=== PATIENT | male | born 1970 | race Caucasian/White ===

== ENCOUNTER 2024-08-17 13:41 | Emergency (ER) | payer SELFPAY ==
[2024-08-17 13:46] VITALS: PULSE 150
[2024-08-17 13:55] VITALS: BP 137/82; PULSE 135; RESP 15; TEMP 36.9; O2SAT 97; BMI 25.4
--- NOTE | 2024-08-17 14:12 | EDNOTE_ITS ---
ED Alcohol RME/HPI General Chief Complaint: Alcohol Stated Complaint: ALCOHOL ABUSE Time Seen by Provider: 08/17/24 14:01 Arrival date/time: 08/17/24 13:41 RME / HPI RME / HPI narrative: 53-year-old male patient with significant history of chronic alcoholism, patient called EMS because he is wanting to stop drinking alcohol. Patient told me that he relapses about 7 days ago, drinking beer, 9% alcohol. Consuming more than 6 cans a day, for the last 7 days straight. Last alcohol intake was this morning. Patient is asking for help because he wanted to stop drinking alcohol for good. He told me that he was having alcohol abstinence for the last 1 year or so. Denies any homicidal or suicidal ideation. Review of Systems Review of Systems Narrative Review of Systems: Review of system reviewed and within normal limits except mentioned in HPI ED Exam Narrative Physical exam: VITAL SIGNS: Reviewed. GENERAL APPEARANCE: Alert and interactive, follows commands, no acute distress, HEAD AND FACE: Non-traumatic. ENT: PERRL, pink conjunctivitis, eyelid no trauma, Mucous membrane moist. NECK: Supple, nontender, no nuchal rigidity. CHEST: No tenderness, no crepitus, no paradoxical movement, no retractions. LUNGS: Clear, well ventilated, symmetric, no rales, no wheezing, no ronchi, no stridor, good breath sounds bilaterally. HEART: Regular rate, regular rhythm, no murmur, no gallops. ABDOMEN: Soft, positive bowel sounds, nondistended, no guarding, nontender, no rebound, no masses, RECTAL: Deferred. GENITAL: Deferred. NEUROLOGICAL: Gross motor function intact sensory function intact, Appropriate for age. MUSCULOSKELETAL: low back nontender, full range of motion. EXTREMITIES: Nontender, full range of motion. SKIN: Color pink, dry, no rash, no lacerations, no abrasions, no contusions. LYMPHATICS: Deferred. Course Quality Measures none Orders Category Date Time Status Insert IV STAT Care 08/17/24 14:08 Active Alcohol, Blood Medical Stat Lab 08/17/24 14:11 Ordered CBC [CBC] Stat Lab 08/17/24 14:11 Ordered CMP [Comprehensive Metabolic Panel] Stat Lab 08/17/24 14:11 Ordered Drug Screen,Urine Stat Lab 08/17/24 14:11 Ordered Magnesium Stat Lab 08/17/24 14:11 Ordered Sodium Chloride 0.9% 1000 ml [Ns] 1,000 ml Med 08/17/24 14:12 Active IV 999 mls/hr Vital Signs Vital signs: Vital Signs Temperature 98.5 F 08/17/24 13:55 Pulse Rate 135 H 08/17/24 13:55 Respiratory Rate 15 08/17/24 13:55 Blood Pressure 137/82 H 08/17/24 13:55 Pulse Oximetry (%) 97 08/17/24 13:55 Oxygen Delivery Method Room Air 08/17/24 13:55 Discharge Plan Plan Patient Disposition: Left Against Medical Advice Prescriptions/Referrals Referrals: No Primary/Family,Physician [Primary Care Provider] - In 1 week Problem List Clinical Impression: Alcoholism, chronic Patient/Caregiver Discharge Instructions Print Language: Belarusian Stand Alone Forms: Renetta Award Info., Patient Portal Info Letter Alcohol MDM Narrative MDM Narrative: Pt has normal mental status and adequate capacity to make medical decisions. Oriented x 4. The patient refuses evaluation and treatment and wants to be discharged. The risks have been explained to the patient, including progression of possible worsening of current disease, worsening illness, chronic pain, permanent disability and . The benefits of evaluation and treatment have also been explained, including the availability and proximity of nurses, physicians, monitoring, diagnostic testing, and treatments. The patient was able to understand and state the risks and benefits of AMA.Patient had the opportunity to ask questions about their medical condition. He left hospital against medical advice. Patient data External records reviewed:: None Clinical information provided by:: patient Social determinants that could affect healthcare access:: alcohol use Patient has the following chronic illnesses:: chronic alcoholism How is presenting disease/condition affected by chronic disease/condition?: exacerbated by Evaluation data The following diagnostics were reviewed and interpreted by me:: lab results Lab and/or radiology exams considered but not ordered:: None Interpretation Summary: Refused lab works patient AMA Medications / Prescriptions Medications or Prescriptions considered but not ordered:: Pt has normal mental status and adequate capacity to make medical decisions. Oriented x 4. The patient refuses evaluation and treatment and wants to be discharged. The risks have been explained to the patient, including progression of possible worsening of current disease, worsening illness, chronic pain, permanent disability and . The benefits of evaluation and treatment have also been explained, including the availability and proximity of nurses, physicians, monitoring, diagnostic testing, and treatments. The patient was able to understand and state the risks and benefits of AMA.Patient had the opportunity to ask questions about their medical condition. He left hospital against medical advice. Medication administrations:: Medication Administration History Sodium Chloride (Ns) 1,000 mls @ 999 mls/hr IV .[id number] ONE Stop: 08/17/24 15:12 AMA Consultations Consultation(s) initiated? (list below): No Diagnosis Differential diagnosis alcohol: alcohol withdrawal delirium, alcohol intoxication and alcohol withdrawal syndrome Most likely diagnosis given after review of the tests above:: Chronic alcoholism Admission Indicated Admission indicated?: not indicated Admission Request Was there a request for admission?: No Disposition Plan Disposition Plan: other (specify)
--- NOTE | 2024-08-17 14:39 | PC.NURSE ---
This nurse is breaking RN. Pt. in room standing up, disconnected self from monitor including leads, Pulse ox and BP monitor. Pt. pulled out IV access and bleeding onto floor. Staff at cleaning pt. Pt. states he just wants to go home and not be here. States he does not want another IV and no longer wants any help. Pt. is A/O x 4. Pt. ambulating with steady gait. Provider aware. AMA form signed. Pt. cleaned up and he gets dressed. Food and drink given. Pt. walks out the ER
== END 2024-08-17 14:46 | disposition left against medical advice (07) ==
PROVIDERS: Emergency Provider Emergency Medicine
DX: F10.20 Alcohol dependence, uncomplicated (principal); Z53.29 Procedure and treatment not carried out because of patient's decision for other reasons
CPT/HCPCS: 80053; 80307; 80320; 83735; 85025; 99281; G0480

== ENCOUNTER 2024-08-19 20:08 | Emergency (ER) | payer MEDICAID, SELFPAY ==
[2024-08-19 20:10] VITALS: BP 144/83; PULSE 129; RESP 17; TEMP 37.1; O2SAT 95
[2024-08-19 21:06] VITALS: PULSE 111; RESP 18; O2SAT 98; BMI 26.3
--- NOTE | 2024-08-19 21:23 | EDNOTE_ITS ---
ED Alcohol RME/HPI General Chief Complaint: Alcohol Stated Complaint: WEAKNESS Time Seen by Provider: 08/19/24 21:00 Source: patient Arrival date/time: 08/19/24 20:08 Mode of arrival: ambulatory Limitations: no limitations RME / HPI RME / HPI narrative: DR. QUEVEDO MAIN ED EVALUATION: 53 year old male presents to the Emergency Department [facility] with complaint of alcohol abuse; patient was brought after a store employee called the police. Patient was brought in for being under the influence of alcohol. Patient had no apparent injury from tonight just some scrapes and bruises from last several days that he has been drinking. Related Data Home Medications ?Medication ?Instructions ?Recorded ?Confirmed levothyroxine 175 mcg tablet 175 mcg PO QDAY 08/26/24 08/27/24 (Synthroid) Allergies Allergy/AdvReac Type Severity Reaction Status Date / Time No Known Allergies Allergy Verified 08/26/24 15:26 Review of Systems Review of Systems Systems Reviewed: All systems reviewed, normal except as documented Past Medical History Past Medical History ENDOCRINE: Positive Hypothyroidism Social History SMOKING STATUS: Current some day smoker ED Exam Narrative Physical exam: GENERAL APPEARANCE: alert and oriented x 4, well-developed, well-nourished, no acute distress VITALS: All vitals were reviewed and the pulse ox is 95% on room air, which is normal according to my interpretation. HEENT: Normocephalic, atraumatic; pupils equal, round, reactive to light; EOMI; mucous membranes pink, moist; oropharynx clear NECK: Supple LUNGS: CTABL; no wheezes, no rales, no rhonchi HEART: Regular rate, regular rhythm; normal S1, S2; no murmurs ABDOMEN: non distended; normal BS; soft, no tenderness, no guarding, no rebound; no masses, no organomegaly, no hernia BACK: no CVA tenderness EXTREMITIES: atraumatic; no edema NEUROLOGIC: awake; alert and oriented x4; cranial nerves II-XII grossly intact; no focal sensory or motor deficits PSYCHIATRIC: appropriate mood and affect SKIN: warm, dry, normal color; no rashes General Limitations: Present no limitations Course Quality Measures none Vital Signs Vital signs: Vital Signs Temperature 98.7 F 08/19/24 20:10 Pulse Rate 129 H 08/19/24 20:10 Respiratory Rate 17 08/19/24 20:10 Blood Pressure 144/83 H 12/01/24 20:10 Pulse Oximetry (%) 95 08/19/24 20:10 Oxygen Delivery Method Room Air 08/19/24 20:10 Discharge Plan Plan Patient Disposition: HOME (Self Care) Patient condition on transfer: Stable Prescriptions/Referrals Prescriptions/Med Rec: No Action levothyroxine [Synthroid] 175 mcg Tablet 175 mcg PO QDAY Referrals: Shimon Root MD [Primary Care Provider] - In 1 week Problem List Clinical Impression: Alcohol intoxication Patient/Caregiver Discharge Instructions Education Materials: ED Alcohol Intoxication Print Language: Cymraes Stand Alone Forms: Renetta Award Info., Patient Portal Info Letter Alcohol MDM Narrative MDM Narrative: IElizabeth am scribing for and in the presence of Dr. Quevedo. Patient data External records reviewed:: EMS form Clinical information provided by:: patient and EMS Social determinants that could affect healthcare access:: alcohol use Patient has the following chronic illnesses:: Hypothyroidism. No known allergies. How is presenting disease/condition affected by chronic disease/condition?: uneffected by Evaluation data The following diagnostics were reviewed and interpreted by me:: lab results Lab and/or radiology exams considered but not ordered:: none Interpretation Summary: n/a Medications / Prescriptions Medications or Prescriptions considered but not ordered:: none Medication administrations:: see above if any Consultations Consultation(s) initiated? (list below): No Diagnosis Differential diagnosis alcohol: alcohol withdrawal delirium, alcohol intoxication, alcohol ketoacidosis and alcohol withdrawal syndrome Most likely diagnosis given after review of the tests above:: Alcohol intoxication Admission Indicated Admission indicated?: not indicated Admission Request Was there a request for admission?: No Disposition Plan Disposition Plan: Discharge Discharge Attestation Discharge Attestation: The patient and all family members were given an opportunity to ask questions and understood the discharge instructions. Discharge instructions specifically effects, indications for sooner follow up or return to the emergency department, and the expected course of current diagnosis. Patient condition: Stable
[2024-08-19 22:40] VITALS: BP 136/70; PULSE 119; RESP 16; TEMP 37; O2SAT 96
[2024-08-20 00:45] VITALS: BP 133/71; PULSE 110; O2SAT 99
--- NOTE | 2024-08-20 01:15 | PC.NURSE ---
Pt awake and is alert. Pt given sandwich bag of chips and water. ate 100%. pt conversing in an intelligible manor.. Pt is wanting to go home.
[2024-08-20 02:00] VITALS: BP 129/70; PULSE 109; RESP 18; TEMP 36.6; O2SAT 97
--- NOTE | 2024-08-20 02:00 | PC.NURSE ---
Pt given another sandwich pudding and juice. Pt A&O x4. ambulating with noirmal and steady gait. GCS is 15. pt wants to go home. MD aware and pt discharged. Long sleeve shirt given to pt.
== END 2024-08-20 02:00 | disposition home or self-care (01) ==
PROVIDERS: Emergency Provider Emergency Medicine; PCP Family Medicine
DX: F10.129 Alcohol abuse with intoxication, unspecified (principal)
CPT/HCPCS: 99283

== ENCOUNTER 2024-08-26 15:21 | Inpatient (IN) | payer MEDICAID, SELFPAY ==
[2024-08-26] VITALS (13 sets, daily range): BP systolic 97–128; BP diastolic 73–98; PULSE 83–185; RESP 15–19; TEMP 36.6–37.3; O2SAT 94–99; BMI 25.8
--- NOTE | 2024-08-26 15:59 | EDNOTE_ITS ---
ED Alcohol RME/HPI General Chief Complaint: Alcohol Stated Complaint: ETOH, BINGE DRINKING 9 DAYS Time Seen by Provider: 08/26/24 15:42 Arrival date/time: 08/26/24 15:21 RME / HPI RME / HPI narrative: Patient is a 53 year old male presenting to the ED BIBA, patient states he has been drinking everyday for 12 days, states he is doing it to kill himself and that he is out of hope . States he was sober for a year, and that he has been t o 2 different rehabs however did not attend AA after being released. States he is not an alcoholic. Related Data Home Medications ?Medication ?Instructions ?Recorded ?Confirmed levothyroxine 175 mcg tablet 175 mcg PO QDAY 08/26/24 08/27/24 (Synthroid) Previous Rx's ?Medication ?Instructions ?Recorded duloxetine 30 mg capsule,delayed 30 mg PO BID 1 month #60 caps 08/30/24 release sprinkle metoprolol succinate 50 mg 50 mg PO QDAY 30 days #30 tabs 08/30/24 tablet,extended release 24 hr vitamin B12 500 mcg-folic acid 400 1 tab PO QDAY 1 month #30 tabs 08/30/24 mcg tablet Allergies Allergy/AdvReac Type Severity Reaction Status Date / Time No Known Allergies Allergy Verified 08/26/24 15:26 Review of Systems Review of Systems Narrative Review of Systems: Gen: No fever, no chills, no weight loss EYES: No discharge, no visual changes, no pain HEENT: No ear pain, no congestion, no sore throat PULM: No shortness of breath, no cough, no congestion CV: No chest pain, no dyspnea on exertion, no palpitations GI: No nausea, no vomiting, no diarrhea, no pain, no constipation : No frequency, no urgency, no dysuria Musc/skel: No joint pain, no back pain Skin: No rash Psyc: +depressed Heme/Lymph: No easy bleeding or bruising tendencies Neuro: No weakness, no headache Past Medical History Past Medical History CARDIAC: Negative Congestive Heart Failure RESPIRATORY: Negative Chronic Obstructive Pulmonary Disease (COPD) GENITOURINARY: Negative Renal Disease ENDOCRINE: Positive Hypothyroidism; Negative Diabetes Mellitus Type 1 or Diabetes Mellitus Type 2 Social History SMOKING STATUS: Light (< 1 pack/day) ED Exam Narrative Physical exam: GEN. APPEARANCE: The patient is alert awake oriented X-3 in mild distress, lying down comfortably, does not look ill/toxic. Patient has good eye contact. Patient is cooperative. slurred speech, smells of alcohol VITALS: All vitals were reviewed and the pulse ox is 100% on room air which is normal according to my interpretation. HEENT: Normocephalic, atraumatic. Pupils are equal and reactive. Oral mucosa is moist. Patent Nares NECK: Supple, nontender, no thyromegaly, no meningismus, no JVD, no step offs CHEST: Symmetrical, atraumatic, and with equal expansion , Nontender on palpation no deformity and no crepitus. CARDIOVASCULAR: Heart rate 170 in SVT LUNGS: Clear to auscultation bilaterally with symmetrical chest rise. No laboring tachypnea or wheezing. No intercostal subcostal retraction. No rales and no rhonchi. ABDOMEN: Soft, flat, nontender to palpation, no guarding or rebound tenderness. There are no abnormal masses palpated. Active and normal bowel sounds. EXTREMITIES: Nontender. No edema. No cyanosis. Patient is able to move all 4 extremities well, with full ROM and good CSM. SKIN: Warm and dry, no jaundice or rashes noted. MUSCULOSKELETAL: No lubar or midline bony tenderness. There is no CVA tenderness. No paraspinal muscle spasm or tenderness. NEURO: Patient is SALAZAR x 4, Cranial nerves II through XII grossly intact. There is no focal neurologic deficits noted. GCS is 15, PNS and [employer] appear grossly intact. PSYCHIATRIC: Patient is in normal mood and affect, cooperative, no SI or HI or hallucinations. 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 STAT Care 08/26/24 16:00 Completed Continuous Pulse Oximetry ONCE Care 08/26/24 16:00 Completed EKG (ED ONLY) *Do not use* NOW Care 08/26/24 16:00 Completed EKG (ED ONLY) *Do not use* NOW Care 08/26/24 16:41 Completed Insert IV NOW Care 08/26/24 15:56 Completed Insert IV STAT Care 08/26/24 16:00 Completed NPO NOW Care 08/26/24 18:21 Completed Notify provider NEEDED Care 08/26/24 18:20 Completed Diet NPO (NOW) Diet 08/26/24 18:21 Completed EKG (ED Only) Stat Exams 08/26/24 16:00 Draft EKG (ED Only) Stat Exams 08/26/24 16:41 Draft XR chest 1V portable Stat Exams 08/26/24 16:00 Completed Alcohol, Blood Medical Stat Lab 08/26/24 15:55 Completed B-Type Natriuretic Peptide Stat Lab 08/26/24 15:55 Completed CBC Stat Lab 08/26/24 15:55 Completed Comprehensive Metabolic Panel Stat Lab 08/26/24 15:55 Completed Lipase Stat Lab 08/26/24 15:55 Completed Magnesium Stat Lab 08/26/24 15:55 Completed Partial Thromboplastin Time Stat Lab 08/26/24 15:55 Completed Prothrombin Time with INR Stat Lab 08/26/24 15:55 Completed Troponin I Stat Lab 08/26/24 15:55 Completed Acetaminophen Tab [Tylenol Tab] Med 08/26/24 18:18 Discontinued 650 mg PO Q6H PRN Acetaminophen Tab [Tylenol Tab] Med 08/26/24 18:18 Discontinued 650 mg PO Q6H PRN Adenosine 6mg Inj [Adenocard Inj] Med 08/26/24 16:12 Discontinued 12 mg IVP X1 ONE Adenosine 6mg Inj [Adenocard Inj] Med 08/26/24 16:18 Discontinued 12 mg IVP X1 ONE Adenosine 6mg Inj [Adenocard Inj] Med 08/26/24 16:09 Discontinued 30 mg .ROUTE .STK-MED ONE Adenosine 6mg Inj [Adenocard Inj] Med 08/26/24 16:12 Discontinued 6 mg IVP X1 ONE Aspirin Med 08/26/24 17:30 Discontinued 325 mg PO X1 ONE Diazepam [Valium] Med 08/26/24 18:18 Discontinued 10 mg PO X1 ONE Diltiazem Inj [Cardizem Inj] Med 08/26/24 16:18 Discontinued 25 mg IV .STK-MED ONE Diltiazem Inj [Cardizem Inj] Med 08/26/24 16:21 Discontinued 25 mg IV X1 ONE Etomidate Inj [Amidate Inj] Med 08/26/24 16:27 Discontinued 20 mg IVP X1 ONE Etomidate Inj [Amidate Inj] Med 08/26/24 16:28 Discontinued 20 mg IVP X1 ONE Folic Acid Med 08/26/24 21:00 Discontinued 1 mg PO BID LORazepam [Ativan Inj] Med 08/26/24 18:18 Discontinued 1 mg IV Q2HR PRN LORazepam [Ativan Inj] Med 08/26/24 18:18 Discontinued 2 mg IVP Q1HR PRN LORazepam [Ativan] Med 08/26/24 18:18 Discontinued 0.5 mg PO Q4HR PRN LORazepam [Ativan] Med 08/26/24 18:30 Discontinued 2 mg PO Q4H Ondansetron Inj [Zofran Inj] Med 08/26/24 18:18 Discontinued 4 mg IV Q6H PRN Pantoprazole Inj [Protonix Inj] Med 08/26/24 18:30 Discontinued 40 mg IVP QDAY Senna [Senokot] Med 08/26/24 18:18 Discontinued 1 tab PO QDAY PRN Sodium Chloride 0.9% 1000 ml [Ns] 1,000 ml Med 08/26/24 18:30 Discontinued IV 150 mls/hr Sodium Chloride 0.9% 1000 ml [Ns] 1,000 ml Med 08/26/24 16:00 Discontinued IV 999 mls/hr Sodium Chloride 0.9% 1000 ml [Ns] 1,000 ml Med 08/26/24 17:30 Discontinued IV 999 mls/hr Thiamine [Vitamin B-1] Med 08/26/24 21:00 Discontinued 100 mg PO BID oxyCODONE/APAP 5/325 [Percocet 5/325] Med 08/26/24 18:18 Discontinued 1 tab PO Q6H PRN Code Status Routine Oth 08/26/24 18:18 Completed Vital Signs Vital signs: Vital Signs Temperature 97.8 F 08/26/24 15:40 Pulse Rate 168 H 08/26/24 15:40 Respiratory Rate 18 08/26/24 15:40 Blood Pressure 115/98 H 08/26/24 15:40 Pulse Oximetry (%) 98 08/26/24 15:40 Oxygen Delivery Method Room Air 08/26/24 15:40 Procedures -ED Procedure Comment Cardioversion performed. Patient initially given 6 of adenonosine, heart rate of 170 SVT maintained, given 12 additional of adenosine, no change HR185. then given another 12 of adenosine, no change HR 170 SVT. Patient then given 25 of cardizem, heart rate 169 in SVT BP 77/63 Then decided to cardivert. 20 of etomidate was given, pulse ox on and monitored, supplemental O2 applied. 1 shock of 50 joules was given. Patient heart rate was 98 in sinus rhythm. Procedural Sedation Preparation: buyers' agent applied, pulse oximeter and supplemental O2 applied IV Etomidate dose (mg): 20 Patient Tolerated Procedure: well and no complications Complications: none Critical Care Time Critical Care Time Critical Care Time: Yes Total Critical Care Time (min.): 45 Attestation: The high probability of sudden, clinically significant deterioration in the patient?s condition required the highest level of my preparedness to intervene urgently. ? The services I provided to this patient were to treat and/or prevent clinically significant deterioration. Services included the following: chart data review, reviewing nursing notes and/or old charts, documentation time, wealth management consultant collaboration regarding findings and treatment options, medication orders and management, direct patient care, vital sign assessments and ordering, interpreting and reviewing diagnostic studies and lab tests. ? Aggregate critical care time includes only time during which I was engaged in work directly related to the patient?s care, as described above, whether at bedside or elsewhere in the Emergency Department. It did not include time spent performing other reported procedures or the services of residents, students, nurses or physician assistants. Discharge Plan Plan Patient Disposition: Admit Acute Care w/in Hospital Patient condition on transfer: Stable Problem List Clinical Impression: Non-ST elevated myocardial infarction (non-STEMI), Alcohol intoxication, Supraventricular tachycardia Patient/Caregiver Discharge Instructions Discharge Activity: activity as tolerated and resume usual activities Other Activity Instructions:: Follow-up with PCP within 1 week of discharge Advised to follow-up with mental health services Return to Emergency Room if symptoms persist, worsen, or new symptoms develop Continue taking medications as prescribed below: ? LEVOTHYROXINE 175 mcg daily ? Vitamin [id number] acid 500-400 mcg tablet ? DULOXETINE 30 mg twice daily ? METOPROLOL XL 50 mg once daily Patient was scheduled for follow up appointment with primary care with [facility] Dr. Gera Resendiz on 09/01/24 at 8:45am. Patient was scheduled for follow up with mental health services with [facility] with provider Rae Redmond on 08/31/24 at 8am. Alcohol MDM Narrative MDM Narrative: Cardioversion performed. Patient initially given 6 of adenonosine, heart rate of 170 SVT maintained, given 12 additional of adenosine, no change HR185. then given another 12 of adenosine, no change HR 170 SVT. Patient then given 25 of cardizem, heart rate 169 in SVT, BP 77/63 Then decided to cardivert. 20 of etomidate was given, pulse ox on and monitored, supplemental O2 applied. 1 shock of 50 joules was given. Patient heart rate was 98 in sinus rhythm. Patient data External records reviewed:: [facility] previous records Clinical information provided by:: patient Social determinants that could affect healthcare access:: alcohol use Patient has the following chronic illnesses:: alcoholism How is presenting disease/condition affected by chronic disease/condition?: exacerbated by Evaluation data The following diagnostics were reviewed and interpreted by me:: lab results, radiology exam(s) and EKG tracing(s) (EKG 1: done at 1612, SVT, rate of 170, normal axis no ectopy. EKG 2: done at 1650. Sinus rhythm, rate 87, normal axis, no ectopy. ) Lab and/or radiology exams considered but not ordered:: none Interpretation Summary: Ordering Physician: Rizwan Pate MD Date of Service: 08/26/24 Procedure(s): XR chest 1V portable Accession Number(s): [id number] cc: Shimon Root MD; Luther Hernandez MD; Rizwan Pate MD~ Examination: AP chest single view Technique one AP portable semiupright chest single view Exam date and time: October 2023 1654 hrs. Indications: Onset chest pain today. Findings: Normal heart size Mild elevation right hemidiaphragm. No pneumonia or pulmonary edema The osseous structures are intact Impression: No pneumonia or pulmonary edema Dictated By: Luther Hernandez MD Signed By: <Electronically signed by Luther Hernandez MD in OV> 08/26/24 1708 Medications / Prescriptions Medications or Prescriptions considered but not ordered:: none Medication administrations:: Medication Administration History Discontinued Medications Acetaminophen (Acetaminophen 325 Mg Tablet) 650 mg PO Q6H PRN PRN Reason: Fever >100.4 Stop: 09/25/24 18:17 Acetaminophen (Acetaminophen 325 Mg Tablet) 650 mg PO Q6H PRN PRN Reason: PAIN SCALE 1-3 (mild Stop: 09/25/24 18:17 Last Admin: 08/30/24 03:25 Dose: 650 mg Documented By: Admin: 08/29/24 01:49 Dose: 650 mg Documented By: Admin: 08/28/24 12:49 Dose: 650 mg Documented By: BV Adenosine (Adenosine Inj 3 Mg/Ml Vial) 12 mg IVP X1 ONE Stop: 08/26/24 16:13 Last Admin: 08/26/24 16:18 Dose: 12 mg Documented By: VRS Adenosine (Adenosine Inj 3 Mg/Ml Vial) 6 mg IVP X1 ONE Stop: 08/26/24 16:13 Last Admin: 08/26/24 16:15 Dose: 6 mg Documented By: VRS Adenosine (Adenosine Inj 3 Mg/Ml Vial) Confirm Administered Dose 30 mg .ROUTE .STK-MED ONE Stop: 08/26/24 16:10 Last Admin: 08/26/24 16:30 Dose: Not Given Documented By: VRS Non-Admin Reason: Duplicate Medication on eMAR Adenosine (Adenosine Inj 3 Mg/Ml Vial) 12 mg IVP X1 ONE Stop: 08/26/24 16:19 Last Admin: 08/26/24 16:26 Dose: 12 mg Documented By: HOMERS Aspirin (Aspirin 325 Mg Tablet) 325 mg PO X1 ONE Stop: 08/26/24 17:31 Last Admin: 08/26/24 17:56 Dose: 325 mg Documented By: TOREY Diazepam (Diazepam 5 Mg Tablet) 10 mg PO X1 ONE Stop: 08/26/24 18:19 Last Admin: 08/26/24 20:59 Dose: Not Given Documented By: SUNNY Non-Admin Reason: Other, see note Diazepam (Diazepam Inj 5 Mg/Ml Vial 2 Ml) 10 mg IVP X1 ONE Stop: 08/27/24 11:54 Last Admin: 08/27/24 12:49 Dose: 10 mg Documented By: MGD Diazepam (Diazepam Inj 5 Mg/Ml Vial 2 Ml) 10 mg IM Q6H PRN PRN Reason: Severe agitation Stop: 09/01/24 13:37 Diltiazem HCl (Diltiazem Inj 5 Mg/Ml Vial 5 Ml) 25 mg IV X1 ONE Stop: 08/26/24 16:22 Last Admin: 08/26/24 16:25 Dose: 25 mg Documented By: VRS Diltiazem HCl (Diltiazem Inj 5 Mg/Ml Vial 5 Ml) Confirm Administered Dose 25 mg IV .STK-MED ONE Stop: 08/26/24 16:19 Last Admin: 08/26/24 16:30 Dose: Not Given Documented By: VRS Non-Admin Reason: Duplicate Medication on eMAR Duloxetine HCl (Duloxetine Hcl 30 Mg Capsule) 30 mg PO BID DEANNA Stop: 09/28/24 20:59 Last Admin: 08/30/24 08:10 Dose: 30 mg Documented By: JRLeslie Admin: 08/29/24 21:20 Dose: 30 mg Documented By: TOSHA Etomidate (Etomidate Inj 2 Mg/Ml Vial 10 Ml) 20 mg IVP X1 ONE Stop: 08/26/24 16:28 Last Admin: 08/26/24 16:57 Dose: Not Given Documented By: VRS Non-Admin Reason: Duplicate Medication on eMAR Etomidate (Etomidate Inj 2 Mg/Ml Vial 10 Ml) 20 mg IVP X1 ONE Stop: 08/26/24 16:29 Last Admin: 08/26/24 16:35 Dose: 20 mg Documented By: CHRISTIANA Folic Acid (Folic Acid 1 Mg Tablet) 1 mg PO BID DEANNA Stop: 08/31/24 20:59 Last Admin: 08/28/24 20:44 Dose: 1 mg Documented By: Admin: 08/28/24 08:12 Dose: 1 mg Documented By: Admin: 08/27/24 20:07 Dose: 1 mg Documented By: Admin: 08/27/24 08:42 Dose: 1 mg Documented By: Admin: 08/26/24 20:48 Dose: 1 mg Documented By: SAMANTHA Folic Acid (Folic Acid 1 Mg Tablet) 1 mg PO QDAY DEANNA Stop: 09/28/24 08:59 Folic Acid (Folic Acid Inj 1 Mg/0.2 Ml) 1 mg IVP QDAY [facility] Stop: 08/29/24 08:59 Heparin Sodium (Porcine) (Heparin Sod Inj 5000 Unit/Ml Vial) 5,000 unit SC Q8HR DEANNA Stop: 09/09/24 21:59 Last Admin: 08/29/24 06:11 Dose: Not Given Documented By: AM Non-Admin Reason: platelet 80 MD cohen said to not give Admin: 08/28/24 21:04 Dose: Not Given Documented By: AM Non-Admin Reason: Platelet 80.MD schneider said to hold Admin: 08/28/24 15:06 Dose: 5,000 unit Documented By: JANIS Co-signed By: KI Comments: Dr. Thomas aware of platelet 80 with order to give medical office assistant: 08/28/24 05:11 Dose: 5,000 unit Documented By: WO Co-signed By: SA Admin: 08/27/24 21:10 Dose: Not Given Documented By: WO Non-Admin Reason: Patient Refused Admin: 08/27/24 13:53 Dose: 5,000 unit Documented By: MGD Co-signed By: aleja Admin: 08/27/24 05:37 Dose: 5,000 unit Documented By: VRS(2) Co-signed By: MLVelia Admin: 08/26/24 23:27 Dose: 5,000 unit Documented By: VRS(2) Co-signed By: DUANE Sodium Chloride (Ns) 1,000 mls @ 999 mls/hr IV .Q1H1M ONE Stop: 08/26/24 17:00 Last Infusion: 08/26/24 17:58 Dose: Infused Documented By: Admin: 08/26/24 16:31 Dose: 999 mls/hr Documented By: VRS Sodium Chloride (Ns) 1,000 mls @ 999 mls/hr IV .Q1H1M ONE Stop: 08/26/24 18:30 Last Infusion: 08/26/24 20:55 Dose: Infused Documented By: Admin: 08/26/24 17:58 Dose: 999 mls/hr Documented By: VG Sodium Chloride (Ns) 1,000 mls @ 150 mls/hr IV .Q6H40M DEANNA Stop: 08/27/24 14:29 Last Infusion: 08/27/24 20:00 Dose: Infused Documented By: Admin: 08/27/24 10:45 Dose: 150 mls/hr Documented By: Infusion: 08/27/24 10:45 Dose: Infused Documented By: Admin: 08/27/24 05:40 Dose: 150 mls/hr Documented By: VRS(2) Infusion: 08/27/24 03:26 Dose: Infused Documented By: VRS(2) Admin: 08/26/24 20:45 Dose: 150 mls/hr Documented By: EE Magnesium Sulfate (Magnesium Sulfate Ivpb) 2 gm in 50 mls @ 25 mls/hr IV X1 ONE Stop: 08/26/24 20:27 Last Admin: 08/26/24 20:47 Dose: 25 mls/hr Documented By: SAMANTHA Ketoconazole (Ketoconazole Cr 2% 15 Gm Tube) 0 gm TOP BID DEANNA Stop: 09/28/24 20:59 Last Admin: 08/30/24 08:11 Dose: 1 applicatio Documented By: Admin: 08/29/24 21:21 Dose: 1 applicatio Documented By: TOSHA Levothyroxine Sodium (Levothyroxine Sodium 25 Mcg Tablet) 175 mcg PO ACBR [facility] Stop: 09/27/24 05:59 Last Admin: 08/28/24 05:09 Dose: 175 mcg Documented By: NIKO Levothyroxine Sodium 125 mcg/ (Levothyroxine Sodium 50 mcg) 175 mcg PO ACBR [facility] Stop: 09/27/24 05:59 Levothyroxine Sodium 125 mcg/ (Levothyroxine Sodium 50 mcg) 175 mcg PO ACBR [facility] Stop: 09/28/24 05:59 Last Admin: 08/30/24 05:25 Dose: 175 mcg Documented By: Admin: 08/29/24 06:17 Dose: 175 mcg Documented By: AM Lorazepam (Lorazepam 0.5 Mg Tablet) 0.5 mg PO Q4HR PRN PRN Reason: CIWA Score 2-6 Stop: 08/31/24 18:17 Lorazepam (Lorazepam 2 Mg/Ml Vial) 1 mg IV Q2HR PRN PRN Reason: CIWA SCORE 7-11 Stop: 08/31/24 18:17 Lorazepam (Lorazepam 2 Mg/Ml Vial) 2 mg IVP Q1HR PRN PRN Reason: CIWA 12-16 Stop: 08/31/24 18:17 Last Admin: 08/27/24 01:49 Dose: 2 mg Documented By: CHRISTIANA(2) Admin: 08/27/24 00:19 Dose: 2 mg Documented By: CHRISTIANA(2) Admin: 08/26/24 22:30 Dose: 2 mg Documented By: Admin: 08/26/24 20:30 Dose: 2 mg Documented By: SUNNY Lorazepam (Lorazepam 0.5 Mg Tablet) 2 mg PO Q4H [facility] Stop: 08/31/24 18:29 Last Admin: 08/26/24 20:54 Dose: Not Given Documented By: SUNNY Non-Admin Reason: Discontinued Lorazepam (Lorazepam 2 Mg/Ml Vial) 2 mg IVP Q4H DEANNA Stop: 08/31/24 18:59 Last Admin: 08/26/24 23:19 Dose: Not Given Documented By: CHRISTIANA(2) Non-Admin Reason: Duplicate Medication on eMAR Admin: 08/26/24 20:58 Dose: Not Given Documented By: SUNNY Non-Admin Reason: Duplicate Medication on eMAR Lorazepam (Lorazepam 2 Mg/Ml Vial) 0.5 mg IVP Q4H PRN PRN Reason: CIWA 2-6 Stop: 08/31/24 19:00 Last Admin: 08/29/24 22:40 Dose: 0.5 mg Documented By: Admin: 08/29/24 18:06 Dose: 0.5 mg Documented By: CHEN Lorazepam (Lorazepam 2 Mg/Ml Vial) 2 mg IVP Q4H PRN PRN Reason: WITHDRAWAL SYMPTOMS Stop: 08/31/24 18:59 Lorazepam (Lorazepam 2 Mg/Ml Vial) 1 mg IV Q2HR PRN PRN Reason: CIWA SCORE 7-11 Stop: 08/31/24 18:17 Last Admin: 08/27/24 21:32 Dose: 1 mg Documented By: NIKO Lorazepam (Lorazepam 2 Mg/Ml Vial) 2 mg IVP Q1HR PRN PRN Reason: CIWA 12-16 Stop: 08/31/24 18:17 Last Admin: 08/28/24 05:10 Dose: 2 mg Documented By: Admin: 08/28/24 02:07 Dose: 2 mg Documented By: Admin: 08/27/24 06:26 Dose: 2 mg Documented By: CHRISTIANA(2) Lorazepam (Lorazepam 0.5 Mg Tablet) 1 mg PO Q4HR DEANNA Stop: 09/01/24 07:44 Lorazepam (Lorazepam 0.5 Mg Tablet) 2 mg PO Q4HR DEANNA Stop: 09/01/24 07:44 Last Admin: 08/27/24 10:29 Dose: 2 mg Documented By: MGVelia Admin: 08/27/24 08:41 Dose: 2 mg Documented By: LUISANA Lorazepam (Lorazepam 2 Mg/Ml Vial) 2 mg IVP X1 ONE Stop: 08/27/24 11:36 Last Admin: 08/27/24 11:35 Dose: 2 mg Documented By: MGD Lorazepam (Lorazepam 2 Mg/Ml Vial) 2 mg IVP Q4H DEANNA Stop: 09/01/24 15:59 Lorazepam (Lorazepam 2 Mg/Ml Vial) 4 mg IVP Q4H DEANNA Stop: 09/01/24 15:59 Lorazepam (Lorazepam 2 Mg/Ml Vial) 2 mg IVP Q4H DEANNA Stop: 09/01/24 15:59 Last Admin: 08/29/24 04:48 Dose: 2 mg Documented By: Admin: 08/29/24 00:19 Dose: 2 mg Documented By: Admin: 08/28/24 20:49 Dose: 2 mg Documented By: Admin: 08/28/24 16:00 Dose: Not Given Documented By: BV Non-Admin Reason: see note; patient asleep Admin: 08/28/24 12:39 Dose: 2 mg Documented By: Admin: 08/28/24 08:12 Dose: 2 mg Documented By: Admin: 08/28/24 03:53 Dose: 2 mg Documented By: Admin: 08/27/24 23:42 Dose: 2 mg Documented By: Admin: 08/27/24 20:07 Dose: 2 mg Documented By: Admin: 08/27/24 15:47 Dose: 2 mg Documented By: MGD Lorazepam (Lorazepam 0.5 Mg Tablet) 2 mg PO Q6H PRN PRN Reason: BREAKTHROUGH AGITATION Stop: 09/01/24 14:32 Last Admin: 08/30/24 00:59 Dose: 2 mg Documented By: Admin: 08/29/24 11:52 Dose: 2 mg Documented By: CHEN Lorazepam (Lorazepam 2 Mg/Ml Vial) 1 mg IVP Q4H DEANNA Stop: 09/03/24 08:14 Last Admin: 08/29/24 08:24 Dose: 1 mg Documented By: CHEN Lorazepam (Lorazepam 2 Mg/Ml Vial) 0.5 mg IVP Q6H DEANNA Stop: 09/04/24 09:14 Last Admin: 08/30/24 16:16 Dose: 0.5 mg Documented By: Admin: 08/30/24 12:46 Dose: Not Given Documented By: CHEN Non-Admin Reason: Patient Asleep Metoprolol Succinate (Metoprolol Succinate Xl 25 Mg Tabcr) 50 mg PO QDAY [facility] Stop: 09/27/24 12:59 Last Admin: 08/30/24 08:11 Dose: 50 mg Documented By: Admin: 08/29/24 08:24 Dose: 50 mg Documented By: Admin: 08/28/24 15:06 Dose: 50 mg Documented By: JANIS Ondansetron HCl (Ondansetron Inj 2 Mg/Ml Inj 2 Ml) 4 mg IV Q6H PRN; Protocol PRN Reason: NAUSEA OR VOMITING Stop: 09/25/24 18:17 Last Admin: 08/29/24 20:39 Dose: 4 mg Documented By: TOSHA Oxybutynin Chloride (Oxybutynin Chlor 5 Mg Tablet) 5 mg PO QID [facility] Stop: 09/28/24 11:59 Last Admin: 08/30/24 16:16 Dose: 5 mg Documented By: Admin: 08/30/24 12:47 Dose: 5 mg Documented By: Admin: 08/30/24 06:23 Dose: 5 mg Documented By: Admin: 08/29/24 21:20 Dose: 5 mg Documented By: Admin: 08/29/24 16:23 Dose: 5 mg Documented By: Admin: 08/29/24 11:52 Dose: 5 mg Documented By: CHEN Oxycodone/Acetaminophen (Oxycodone/Apap 5/325 Tablet) 1 tab PO Q6H PRN PRN Reason: PAIN SCALE 4-6 (Moderate Stop: 08/31/24 18:17 Last Admin: 08/28/24 03:39 Dose: 1 tab Documented By: Admin: 08/26/24 23:27 Dose: 1 tab Documented By: CHRISTIANA(2) Pantoprazole Sodium (Pantoprazole Inj 40 Mg Vial) 40 mg IVP QDAY [facility] Stop: 09/25/24 18:29 Last Admin: 08/30/24 08:10 Dose: 40 mg Documented By: Admin: 08/29/24 08:24 Dose: 40 mg Documented By: Admin: 08/28/24 08:12 Dose: 40 mg Documented By: Admin: 08/27/24 08:42 Dose: 40 mg Documented By: Admin: 08/26/24 20:46 Dose: 40 mg Documented By: SAMANTHA Pantoprazole Sodium (Pantoprazole 40 Mg Tablet) 40 mg PO QDAY [facility] Stop: 09/25/24 18:29 Potassium Chloride (Potassium Chloride 20 Meq Tabcr) 40 meq PO X1 ONE Stop: 08/28/24 08:19 Last Admin: 08/28/24 08:32 Dose: 40 meq Documented By: JANIS Potassium Phos/Sodium Phos (Naph,[facility] 1 Packet (1.5 Gm)) 1 packet PO X1 ONE Stop: 08/28/24 10:21 Last Admin: 08/28/24 12:39 Dose: 1 packet Documented By: JANIS Sennosides (Senna Tablet) 1 tab PO QDAY PRN; Protocol PRN Reason: constipation Stop: 09/25/24 18:17 Last Admin: 08/30/24 00:59 Dose: 1 tab Documented By: TOSHA Thiamine HCl (Thiamine 100 Mg Tablet) 100 mg PO BID [facility] Stop: 08/31/24 20:59 Last Admin: 08/30/24 08:11 Dose: 100 mg Documented By: Admin: 08/29/24 21:20 Dose: 100 mg Documented By: Admin: 08/29/24 08:26 Dose: 100 mg Documented By: Admin: 08/28/24 20:44 Dose: 100 mg Documented By: Admin: 08/28/24 08:13 Dose: 100 mg Documented By: Admin: 08/27/24 20:07 Dose: 100 mg Documented By: Admin: 08/27/24 08:41 Dose: 100 mg Documented By: Admin: 08/26/24 20:47 Dose: 100 mg Documented By: SAMANTHA Thiamine HCl (Thiamine Inj 100 Mg/Ml Vial 2 Ml) 100 mg IVP QDAY [facility] Stop: 08/29/24 18:29 Last Admin: 08/26/24 21:01 Dose: Not Given Documented By: SUNNY Non-Admin Reason: given po Thiamine HCl (Thiamine 100 Mg Tablet) 100 mg PO QDAY [facility] Stop: 09/28/24 08:59 Vitamin B Complex/Vit C/Folic Acid (Vit B12/Vit C/Fa (Nephrovite) Tablet) 1 tab PO QDAY [facility] Stop: 09/28/24 08:59 Last Admin: 08/30/24 08:10 Dose: 1 tab Documented By: Admin: 08/29/24 08:30 Dose: 1 tab Documented By: CHEN see above Consultations Consultation(s) initiated? (list below): Yes Consultation #1 (Physician, Specialty, Details): Discussed with admitting team and hospitalist Dr. Fuller regarding the patients current status and results, agrees to admission Time: 17:30 Diagnosis Differential diagnosis alcohol: other (SVT, rapid AFIB, v tach, multi vocal tachycardia, sinus tachycardia) Most likely diagnosis given after review of the tests above:: SVT, severe alcohol intoxication, nonstemi Admission Indicated Admission indicated?: indicated Admission Request Was there a request for admission?: Yes Admission Attestation Admission request attestation: Discussed case with Dr Fuller from Hospitalist service regarding admission. Discussed patients ED course, exam findings, labs, and radiology results. The Hospitalist agrees to accept the patient for admission. Disposition Plan Disposition Plan: Admit
--- NOTE | 2024-08-26 16:00 | EKG_ITS ---
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
[2024-08-26] MEDS: ADENOSINE INJ 3 MG/ML VIAL 6 MG IVP (16:15)
[2024-08-26] MEDS: ADENOSINE INJ 3 MG/ML VIAL 12 MG IVP ×2 (16:18→16:26)
[2024-08-26 16:22] LABS: Basophils # (Auto) 0.1 Thou/mm3 (0.0-0.2); Basophils % (Auto) 1 % (0-2.5); Eosinophils % (Auto) 1 % (0-10); Hematocrit 47.8 % (41.0-53.0); Hemoglobin 16.7 g/dL (13.5-16.0); Immature Granulocytes % (Auto) 0 % (0-0); Immature Granulocytes Auto 0.01 Thou/mm3 (0.00-0.00); Lymphocytes % (Auto) 35 % (10-50); Mean Corpuscular HGB Conc 34.9 g/dl (31.0-37.0); Mean Corpuscular Hemoglobin 31.8 pg (25.0-35.0); Mean Corpuscular Volume 91 fL (80-100); Monocytes # (Auto) 0.6 Thou/mm3 (0.0-0.8); Monocytes % (Auto) 7 % (0-12); Neutrophils # (Auto) 4.9 Thou/mm3 (1.8-7.7); Neutrophils % (Auto) 57 % (37-80); Nucleated Red Blood Cell % 0 /100 WBC (0); Platelet Count 152 Thou/mm3 (140-440); RDW Standard Deviation 41.9 fL (35.1-43.9); Red Blood Count 5.25 Miln/mm3 (4.50-5.90); White Blood Count 8.6 Thou/mm3 (3.8-10.6)
[2024-08-26] MEDS: DILTIAZEM INJ 5 MG/ML VIAL 5 ML 25 MG IV (16:25)
[2024-08-26] MEDS: SODIUM CHLORIDE 0.9% 1000 ML 1,000 ML 999 ML IV ×2 (16:31→17:58)
--- NOTE | 2024-08-26 16:32 | PC.NURSE ---
PT PLACED IN ROOM 16 AND CAME IN FOR BEING DRINKING 1 BOTTLE OF WHISKEY FOR THE LAST 9 DAYS. PT PRESENTS IN SVT IN THE 170'S. PT HAS BEEN GIVEN ADENOSINE 6MG, 12MG, AND 12MG WITH UNSUCCESSFUL CONVERSION. DR. GARCIA WANTS TO CARDIOVERT PT. PT MOVED TO ROOM 3 FOR CARDIOVERSION.
[2024-08-26] MEDS: ETOMIDATE INJ 2 MG/ML VIAL 10 ML 20 MG IVP (16:35)
--- NOTE | 2024-08-26 16:40 | PC.NURSE ---
PT SHOCKED AT 50J, RHYTHM CONVERTED TO SR 95
--- NOTE | 2024-08-26 16:41 | EKG_ITS ---
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
[2024-08-26 16:50] LABS: Alanine Aminotransferase 120 U/L (10-49); Albumin, Serum 4.1 gm/dL (3.5-5.0); Albumin/Globulin Ratio 1.6 (1.2-2.2); Alcohol, Blood Medical 395.2 mg/dL (0-10.0); Alkaline Phosphatase 111 U/L (46-116); Anion Gap 12 (7-16); Aspartate Amino Transferase 192 U/L (0-34); BUN/Creatinine Ratio 12 Ratio (12-20); Bilirubin,Total 0.8 mg/dL (0.3-1.2); Blood Urea Nitrogen 13 mg/dL (9-23); Calcium 8.4 mg/dL (8.3-10.6); Calcium (Corrected) 8.4 mg/dL (8.5-10.1); Carbon Dioxide 27.2 mMol/L (20.0-31.0); Chloride 99 mMol/L (98-107); Creatinine (Component) 1.1 mg/dL (0.6-1.3); Globulin 2.5 gm/dL (2.3-3.5); Glucose 94 mg/dL (74-106); Lipase 79 U/L (12-53); Magnesium 2.4 mg/dL (1.6-2.6); Osmolality,Calculated 275 (275-295); Sodium 138 mMol/L (136-145); Total Protein 6.6 gm/dL (5.7-8.2); eGFR > 60 See Note
[2024-08-26 16:52] LABS: Troponin I 0.112 ng/mL (0.0-0.045)
[2024-08-26 17:05] LABS: B-Type Natriuretic Peptide 46 pg/mL (0-100); INR 0.9 (0.9-1.3); Partial Thromboplastin Time 29.4 Seconds (22.0-36.0)
[2024-08-26] MEDS: Aspirin 325 MG TABLET PO (17:56)
--- NOTE | 2024-08-26 18:00 | PC.NURSE ---
admitting team at bedside to assess.
--- NOTE | 2024-08-26 18:29 | ESHP_ITS ---
Documentation for date of: 08/26/24 [facility] History of Present Illness History of present illness: This is a 53-year-old male, with no PMHx, BIBA with complaint of intoxication. 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 Patient at bedside states he has been feeling hopeless since early July after he was diagnosed with elevated PSA, after which he over-reacted to the news, quit his job, and has been drinking 2 bottles of whiskey since then. Patient denies previous history of alcohol. States he is not an alcoholic, never before had he had alcohol. Additionally, patient lives alone, reports a single failed attempt of trying to strangulate himself. Patient himself has been trying to quit drinking however he struggling with alcohol dependency. He understands that he needs to quit however currently unable to do so. He states he has family living out of town, last weekend plan to go visit with them but the plan fell through. Additionally, patient complains of persistent polyuria and diarrhea since he started drinking. Patient denies previous alcohol use, withdrawal symptoms such as seizure or tremors, fever, headaches, visual changes, shortness of breath, chest pain, cough, hematemesis, hemoptysis, melena or hematochezia, dysuria or hematuria, urinary urgency or frequency. Additionally, patient denies current SI or homicidal ideation. ED COURSE: Afebrile, BP 115/98, HR 168, satting 98% on a liter Admission patient found in SVT, failed ADENOSINE therapy, subsequently cardioverted Repeat EKG showed sinus rhythm, heart rate around 100, maintaining sinus rhythm on telemetry Hemoglobin 16.7, EtOH 395, troponin 0.112, AST 192, ALT 120, Lipase 79 CXR negative for pneumonia or pulmonary edema Exam patient found to have slurred speech, mild tremors, decreased motility, depressed mood and affect, no signs of hallucination Patient admitted under hospital service for alcohol withdrawal and acute troponinemia. PMHx: None PSHx: None Meds: None Allergies: NKA SH: Single, lives alone recently quit his job, denies drug or drug use, denies previous history of drinking Exam Vital Signs Temp Pulse Resp BP Pulse Ox O2 Del Method O2 Flow Rate 97.8 F 88 15 128/77 99 Oxy Mask 8 08/26/24 15:40 08/26/24 16:49 08/26/24 16:49 08/26/24 16:49 08/26/24 16:49 08/26/24 16:49 08/26/24 16:49 Narrative Exam GENERAL: Disheveled appearing male, appears in mild distress HEENT: NCAT.?LUIS. Oral mucosa is moist. Patent Nares NECK: Supple, nontender, no thyromegaly, no meningismus, no JVD, no step offs CHEST: Symmetrical, atraumatic, and with equal expansion, Nontender on palpation no deformity and no crepitus. CARDIOVASCULAR: RRR, no m/g/r LUNGS: CTAB, no w/r/r. Symmetrical chest rise. No intercostal subcostal retraction. ABDOMEN: Soft, flat, nontender. No guarding/rebound tenderness/masses. +BS EXTREMITIES: Nontender.? No edema/cyanosis.?Moves all 4 extremities well, with full ROM and good CSM. SKIN: Cool skin, dry, flushed and sweaty skin, no jaundice/rashes. No scleral icterus MSK: No lumbar or midline, no CVA, no paraspinal muscle spasm or tenderness. NEURO: Mild delayed reaction, muscle movement. Tremors on exam bilaterally. SALAZAR x4, CN II-XII grossly intact.?No focal neurologic deficits. PSYCHIATRIC: Depressed mood and affect, cooperative, denies SI or HI Results: Labs 08/27/24 07:11 08/27/24 07:11 Labs: Short CBC 08/26/24 Range/Units 15:55 WBC 8.6 (3.8-10.6) Thou/mm3 Hgb 16.7 H (13.5-16.0) g/dL Hct 47.8 (41.0-53.0) % Plt Count 152 (140-440) Thou/mm3 BMP 08/26/24 15:55 Sodium 138 Potassium 4.0 Chloride 99 Carbon Dioxide 27.2 BUN 13 Creatinine 1.1 Glucose 94 Calcium 8.4 Cardiac Enzymes 08/26/24 Range/Units 15:55 Troponin I 0.112 H* (0.0-0.045) ng/mL Liver Function 08/26/24 Range/Units 15:55 Total Bilirubin 0.8 (0.3-1.2) mg/dL AST 192 H (0-34) U/L ALT 120 H (10-49) U/L Alkaline Phosphatase 111 (46-116) U/L Albumin 4.1 (3.5-5.0) gm/dL Quality Measures Quality Measures none Medications Home Medications and Allergies Home Medications ?Medication ?Instructions ?Recorded ?Confirmed ?Type levothyroxine 175 mcg tablet mcg 08/26/24 History (Synthroid) Allergies Allergy/AdvReac Type Severity Reaction Status Date / Time No Known Allergies Allergy Verified 08/26/24 15:26 Visit Medications Acetaminophen (Acetaminophen 325 Mg Tablet) 650 mg PO Q6H PRN PRN Reason: Fever >100.4 Stop: 09/25/24 18:17 Acetaminophen (Acetaminophen 325 Mg Tablet) 650 mg PO Q6H PRN PRN Reason: PAIN SCALE 1-3 (mild Stop: 09/25/24 18:17 Folic Acid (Folic Acid 1 Mg Tablet) 1 mg PO BID DEANNA Stop: 08/31/24 20:59 Heparin Sodium (Porcine) (Heparin Sod Inj 5000 Unit/Ml Vial) 5,000 unit SC Q8HR DEANNA Stop: 09/09/24 21:59 Sodium Chloride (Ns) 1,000 mls @ 999 mls/hr IV .Q1H1M ONE Stop: 08/26/24 18:30 Last Admin: 08/26/24 17:58 Dose: 999 mls/hr Sodium Chloride (Ns) 1,000 mls @ 150 mls/hr IV .Q6H40M DEANNA Stop: 08/27/24 14:29 Lorazepam (Lorazepam 0.5 Mg Tablet) 0.5 mg PO Q4HR PRN PRN Reason: CIWA Score 2-6 Stop: 08/31/24 18:17 Lorazepam (Lorazepam 2 Mg/Ml Vial) 1 mg IV Q2HR PRN PRN Reason: CIWA SCORE 7-11 Stop: 08/31/24 18:17 Lorazepam (Lorazepam 2 Mg/Ml Vial) 2 mg IVP Q1HR PRN PRN Reason: CIWA 12-16 Stop: 08/31/24 18:17 Lorazepam (Lorazepam 0.5 Mg Tablet) 2 mg PO Q4H DEANNA Stop: 08/31/24 18:29 Ondansetron HCl (Ondansetron Inj 2 Mg/Ml Inj 2 Ml) 4 mg IV Q6H PRN; Protocol PRN Reason: NAUSEA OR VOMITING Stop: 09/25/24 18:17 Oxycodone/Acetaminophen (Oxycodone/Apap 5/325 Tablet) 1 tab PO Q6H PRN PRN Reason: PAIN SCALE 4-6 (Moderate Stop: 08/31/24 18:17 Pantoprazole Sodium (Pantoprazole Inj 40 Mg Vial) 40 mg IVP QDAY DEANNA Stop: 09/25/24 18:29 Sennosides (Senna Tablet) 1 tab PO QDAY PRN; Protocol PRN Reason: constipation Stop: 09/25/24 18:17 Thiamine HCl (Thiamine 100 Mg Tablet) 100 mg PO BID COUNT INCLUDES [facility] Stop: 08/31/24 20:59 Discontinued Medications Adenosine (Adenosine Inj 3 Mg/Ml Vial) 12 mg IVP X1 ONE Stop: 08/26/24 16:13 Last Admin: 08/26/24 16:18 Dose: 12 mg Adenosine (Adenosine Inj 3 Mg/Ml Vial) 6 mg IVP X1 ONE Stop: 08/26/24 16:13 Last Admin: 08/26/24 16:15 Dose: 6 mg Adenosine (Adenosine Inj 3 Mg/Ml Vial) 12 mg IVP X1 ONE Stop: 08/26/24 16:19 Last Admin: 08/26/24 16:26 Dose: 12 mg Aspirin (Aspirin 325 Mg Tablet) 325 mg PO X1 ONE Stop: 08/26/24 17:31 Last Admin: 08/26/24 17:56 Dose: 325 mg Diazepam (Diazepam 5 Mg Tablet) 10 mg PO X1 ONE Stop: 08/26/24 18:19 Diltiazem HCl (Diltiazem Inj 5 Mg/Ml Vial 5 Ml) 25 mg IV X1 ONE Stop: 08/26/24 16:22 Last Admin: 08/26/24 16:25 Dose: 25 mg Etomidate (Etomidate Inj 2 Mg/Ml Vial 10 Ml) 20 mg IVP X1 ONE Stop: 08/26/24 16:28 Last Admin: 08/26/24 16:57 Dose: Not Given Etomidate (Etomidate Inj 2 Mg/Ml Vial 10 Ml) 20 mg IVP X1 ONE Stop: 08/26/24 16:29 Last Admin: 08/26/24 16:35 Dose: 20 mg Sodium Chloride (Ns) 1,000 mls @ 999 mls/hr IV .Q1H1M ONE Stop: 08/26/24 17:00 Last Infusion: 08/26/24 17:58 Dose: Infused Assessment & Plan Plan This is a 53-year-old male with no PMHx, admitted for severe alcohol intoxication, SVT s/p cardioversion, troponinemia, suicidal attempt. On CIWA and suicidal precaution. # Acute encephalopathy /: # Alcohol intoxication # Alcohol dependency disorder Admits to a month-long of binge drinking, 2 bottles of whiskey daily Signs and symptoms of intoxication on exam, depressed affect and slurred speech Concurrently, mild bilateral tremors, no seizures, no hallucination Denies previous history of alcohol use or drug use Denies previous symptoms of withdrawal including seizures and tremors ? Admit to telemetry ? Started banana bag ? CIWA protocol ? Started LORAZEPAM 2 mg IV q.4h. scheduled ? Seizure precaution ? IV fluid maintenance at 150 cc/H ? Physical therapy ? Swallowing eval, currently n.p.o. ? nutrition services aide # SVT, s/p cardioversion # Acute troponinemia, likely type II NSTEMI # Tachycardia SVT likely 2/2 alcohol withdrawal Presented with HR 168, failed ADENOSINE and DILTIAZEM, subsequently cardioverted Repeat EKG sinus tachycardia, telemetry showed persistent sinus tachycardia, HR around 100 Troponin 0.112, likely demand ischemia in settings of tachycardia Denies chest pain or shortness of breath ? Telemetry ? Treating underlying cause # Suicidal ideation, with suicidal attempt # Depression Reports binge drinking since recently diagnosed with elevated PSA Patient reports feeling depressed after the news, admits to overreacting, he quit his job, and resorted to alcohol use, has been drinking 2 bottles of whiskey daily Patient lives alone, had attempted to strangulate himself but failed States he has been having suicidal ideation which is why he continued drinking alcohol to end his life. No previous history of psych disorder Currently denies homicidal and suicidal ideation Patient states he is ready to quit drinking and go back to his normal life ? Consult drug abuse social worker ? Suicidal precautions # Acute transaminitis Admission AST 192, ALT 120, consistent with alcoholic hepatitis pattern History of alcohol abuse, No history of liver disease Denies abdominal pain, patient no jaundice, no scleral icterus Anticipate improvement with current management No signs of active bleed, coag panel within normal limits ? Daily CBC and CMP Health maintenance Diet: NPO GI prophylaxis: PROTONIX DVT prophylaxis: HEPARIN Antibiotics: Not indicated CODE STATUS: Full code Disposition: Pending social service evaluation and controlling withdrawal symptoms Patient case was discussed with attending, Santos Fuller MD and senior residents Dr. Majano and Dr. Weir. Lindsey Rasmussen DO PGYI Attending Provider Attestation/Addendum I reviewed labs, imaging, EKG, home medications and prior available records. Face to face evaluation was performed by me. I have personally examined the patient and discussed assessment and plan with the IM team. I reviewed the resident note and agree with the plan with exceptions as below. 53-year-old male with history of depression who presented with a chief complaint of suicidal ideation and altered mental status. He was found to have SVT in the setting of alcohol intoxication, in addition to transaminitis, and non-STEMI. SVT: Presented on admission. Status post IV adenosine. Heart rate was WNL at the time of my evaluation. Likely in the setting of alcohol intoxication. Continue management as below. Acute encephalopathy: Likely in the setting of alcohol intoxication. Supportive care with IV fluids. Start thiamine and folic acid. Monitor LFTs. Suicidal ideation: In the setting of history of untreated depression. He is on 1799 hold with suicidal precautions. Crisis team evaluation prior to discharge. Alcohol intoxication: Reported as intentional suicide attempt. Supportive care as above. Elevated troponin: Likely type II non-STEMI in the setting of SVT and alcohol intoxication. Management as above. Continue telemetry. Consulted cardiology.
--- NOTE | 2024-08-26 18:30 | PC.NURSE ---
Addendum entered by Leticia Doll RN 08/26/24 19:36: PT REMOVED IV, STATING HE IS LEAVING. DR AGOSTO MADE AWARE. PER DR AGOSTO PT IS INTOXICATED AND WAS MAKING SI STATEMENTS AND CAN NOT LEAVE. [address] AGOSTO. Original Note: PT REMOVED IV, STATING HE IS LEAVING. DR AGOSTO MADE AWARE, [address] AGOSTO.
--- NOTE | 2024-08-26 18:45 | PC.NURSE ---
PT MOVED TO ED ROOM 18.
[2024-08-26] MEDS: LORazepam 2 MG/ML VIAL IVP ×2 (20:30→22:30)
[2024-08-26] MEDS: SODIUM CHLORIDE 0.9% 1000 ML 1,000 ML 150 ML IV (20:45)
[2024-08-26] MEDS: PANTOPRAZOLE INJ 40 MG VIAL IVP (20:46)
[2024-08-26] MEDS: THIAMINE 100 MG TABLET PO (20:47)
[2024-08-26] MEDS: Magnesium Sulfate 2 GM Ivpb 2 GM/50 ML BAG IV (20:47)
[2024-08-26] MEDS: FOLIC ACID 1 MG TABLET PO (20:48)
[2024-08-26] MEDS: oxyCODONE/APAP 5/325 TABLET 1 TAB PO (23:27)
[2024-08-26] MEDS: HEPARIN SOD INJ 5000 UNIT/ML VIAL SC (23:27)
[2024-08-27] VITALS (8 sets, daily range): BP systolic 107–131; BP diastolic 65–85; PULSE 80–113; RESP 13–96; TEMP 36.5–37; O2SAT 94–100; BMI 26.6
[2024-08-27] MEDS: LORazepam 2 MG/ML VIAL IVP ×7 (00:19→23:42)
[2024-08-27 02:39] LABS: Troponin I 0.231 ng/mL (0.0-0.045)
[2024-08-27] MEDS: HEPARIN SOD INJ 5000 UNIT/ML VIAL SC ×2 (05:37→13:53)
[2024-08-27] MEDS: SODIUM CHLORIDE 0.9% 1000 ML 1,000 ML 150 ML IV ×2 (05:40→10:45)
--- NOTE | 2024-08-27 05:55 | PC.NURSE ---
Dr. Smith informed to clarify Ativan PRN d/t having conflicting CIWA ranges. states he will modify orders
[2024-08-27 07:29] LABS: Basophils # (Auto) 0.1 Thou/mm3 (0.0-0.2); Basophils % (Auto) 1 % (0-2.5); Eosinophils # (Auto) 0.1 Thou/mm3 (0.0-0.5); Eosinophils % (Auto) 2 % (0-10); Hematocrit 35.3 % (41.0-53.0); Hemoglobin 12.1 g/dL (13.5-16.0); Immature Granulocytes % (Auto) 0 % (0-0); Immature Granulocytes Auto 0.02 Thou/mm3 (0.00-0.00); Lymphocytes # (Auto) 1.6 Thou/mm3 (1.0-4.8); Lymphocytes % (Auto) 28 % (10-50); Mean Corpuscular HGB Conc 34.3 g/dl (31.0-37.0); Mean Corpuscular Hemoglobin 31.9 pg (25.0-35.0); Mean Corpuscular Volume 93 fL (80-100); Monocytes # (Auto) 0.5 Thou/mm3 (0.0-0.8); Monocytes % (Auto) 9 % (0-12); Neutrophils # (Auto) 3.4 Thou/mm3 (1.8-7.7); Neutrophils % (Auto) 59 % (37-80); Nucleated Red Blood Cell % 0 /100 WBC (0); Platelet Count 109 Thou/mm3 (140-440); RDW Standard Deviation 43.4 fL (35.1-43.9); Red Blood Count 3.79 Miln/mm3 (4.50-5.90); White Blood Count 5.7 Thou/mm3 (3.8-10.6)
--- NOTE | 2024-08-27 07:35 | ESPR_ITS ---
<Statement entered by Leodan Majano MD - 08/28/24 08:09> Patient was seen and examined by me personally. I agree with most of the assessment and plan as discussed with the internet marketing assistant physician, and my attending, Dr. Fuller. Vitals, labs reviewed. Patient with EtOH withdrawal. CIWA 13-16, continue with protocol. Patient does not have capacity to make decisions at this time. Once he has capacity, will need evaluation by crisis due to previous statements regarding SI. Leodan Majano MD, PGY-3 Documentation for date of: 08/27/24 Subjective Subjective Interval history: Patient states he slept okay. Still feeling tremulous and agitated, wanting to leave AMA on multiple occasion. Denies hallucination, SI or HI. Per social insurance specialist, patient not actively having thoughts of suicide or homicide, however pending final crisis evaluation. We will switch scheduled IV LORAZEPAM to p.o., discontinue DIAZEPAM IV, reevaluate alertness and orientation once DIAZEPAM wears off. Will continue to monitor. Exam Vital Signs Temp Pulse Resp BP Pulse Ox O2 Del Method O2 Flow Rate 98.0 F 87 20 111/78 97 Room Air 8 08/27/24 04:00 08/27/24 06:36 08/27/24 06:36 08/27/24 04:00 08/27/24 06:36 08/27/24 04:00 08/26/24 16:49 Narrative Exam GENERAL: Disheveled appearing male, appears in mild distress HEENT: NCAT.?LUIS. Oral mucosa is moist. Patent Nares NECK: Supple, nontender, no thyromegaly, no meningismus, no JVD, no step offs CHEST: Symmetrical, atraumatic, and with equal expansion, Nontender on palpation no deformity and no crepitus. CARDIOVASCULAR: RRR, no m/g/r LUNGS: CTAB, no w/r/r. Symmetrical chest rise. No intercostal subcostal retraction. ABDOMEN: Soft, flat, nontender. No guarding/rebound tenderness/masses. +BS EXTREMITIES: Nontender.? No edema/cyanosis.?Moves all 4 extremities well, with full ROM and good CSM. SKIN: Cool skin, dry, flushed and sweaty skin, no jaundice/rashes. No scleral icterus MSK: No lumbar or midline, no CVA, no paraspinal muscle spasm or tenderness. NEURO: Mild delayed reaction, muscle movement. Improved tremors on exam bilaterally. SALAZAR x4, CN II-XII grossly intact.?No focal neurologic deficits. PSYCHIATRIC: Depressed mood and affect, cooperative, denies SI or HI Objective Labs 08/28/24 05:20 08/28/24 05:20 Labs: Laboratory Results - last 24 hr 08/26/24 08/26/24 08/27/24 15:55 18:06 01:14 WBC 8.6 RBC 5.25 Hgb 16.7 H Hct 47.8 MCV 91 MCH 31.8 MCHC 34.9 RDW Std Deviation 41.9 Plt Count 152 Neut % (Auto) 57 Lymph % (Auto) 35 Knott % (Auto) 7 Eos % (Auto) 1 Baso % (Auto) 1 Neut # (Auto) 4.9 Lymph # (Auto) 3.0 Knott # (Auto) 0.6 Eos # (Auto) 0.0 Baso # (Auto) 0.1 Immature Gran # (Auto) 0.01 H Absolute Nucleated RBC 0.00 Immature Gran % 0 Nucleated RBC % 0 PT 10.0 INR 0.9 APTT 29.4 Sodium 138 Potassium 4.0 Chloride 99 Carbon Dioxide 27.2 Anion Gap 12 BUN 13 Creatinine 1.1 Estim Creat Clear Calc Not Performed. eGFR > 60 BUN/Creatinine Ratio 12 Glucose 94 Calculated Osmolality 275 Calcium 8.4 Corrected Calcium 8.4 L Magnesium 2.4 Total Bilirubin 0.8 AST 192 H ALT 120 H Alkaline Phosphatase 111 Troponin I 0.112 H* Cancelled 0.231 H* B-Natriuretic Peptide 46 Total Protein 6.6 Albumin 4.1 Globulin 2.5 Albumin/Globulin Ratio 1.6 Lipase 79 H Ethyl Alcohol 395.2 H Quality Measures Quality Measures none Assessment & Plan Assessment Current Active Medications: Generic Name Dose Route Start Last Admin Trade Name Freq PRN Reason Stop Dose Admin Acetaminophen 650 mg 08/26/24 18:18 Acetaminophen 325 Mg Tablet PO 09/25/24 18:17 Q6H PRN Fever >100.4 Acetaminophen 650 mg 08/26/24 18:18 Acetaminophen 325 Mg Tablet PO 09/25/24 18:17 Q6H PRN PAIN SCALE 1-3 (mild Folic Acid 1 mg 08/26/24 21:00 08/26/24 20:48 Folic Acid 1 Mg Tablet PO 12/13/24 20:59 1 mg BID DEANNA Administration Heparin Sodium (Porcine) 5,000 unit 08/26/24 22:00 08/27/24 05:37 Heparin Sod Inj 5000 Unit/Ml Vial SC 09/09/24 21:59 5,000 unit Q8HR DEANNA Administration Sodium Chloride 1,000 mls @ 150 mls/hr 08/26/24 18:30 08/27/24 05:40 Ns IV 08/27/24 14:29 150 mls/hr .Q6H40M DEANNA Administration Lorazepam 0.5 mg 08/26/24 19:01 Lorazepam 2 Mg/Ml Vial IVP 08/31/24 19:00 Q4H PRN CIWA 2-6 Lorazepam 1 mg 08/27/24 06:01 Lorazepam 2 Mg/Ml Vial IV 08/31/24 18:17 Q2HR PRN CIWA SCORE 7-11 Lorazepam 2 mg 08/27/24 06:01 08/27/24 06:26 Lorazepam 2 Mg/Ml Vial IVP 08/31/24 18:17 2 mg Q1HR PRN Administration CIWA 12-16 Ondansetron HCl 4 mg 08/26/24 18:18 Ondansetron Inj 2 Mg/Ml Inj 2 Ml IV 09/25/24 18:17 Q6H PRN NAUSEA OR VOMITING Protocol Oxycodone/Acetaminophen 1 tab 08/26/24 18:18 08/26/24 23:27 Oxycodone/Apap 5/325 Tablet PO 08/31/24 18:17 1 tab Q6H PRN Administration PAIN SCALE 4-6 (Moderate Pantoprazole Sodium 40 mg 08/26/24 18:30 08/26/24 20:46 Pantoprazole Inj 40 Mg Vial IVP 09/25/24 18:29 40 mg QDAY DEANNA Administration Sennosides 1 tab 08/26/24 18:18 Senna Tablet PO 09/25/24 18:17 QDAY PRN constipation Protocol Thiamine HCl 100 mg 08/26/24 21:00 08/26/24 20:47 Thiamine 100 Mg Tablet PO 08/31/24 20:59 100 mg BID DEANNA Administration Plan This is a 53-year-old male with no PMHx, admitted for severe alcohol intoxication, SVT s/p cardioversion, troponinemia, suicidal attempt. On CIWA and suicidal precaution. Patient still agitated, we added scheduled LORAZEPAM and DIAZEPAM. Pending cardiology recommendations. Appreciate cardiology recommendations. # Acute encephalopathy 2/: # Alcohol intoxication # Alcohol dependency disorder Admits to a month-long of binge drinking, 2 bottles of whiskey daily Signs and symptoms of intoxication on exam, depressed affect and slurred speech Concurrently, mild bilateral tremors, no seizures, no hallucination Denies previous history of alcohol use or drug use Denies previous symptoms of withdrawal including seizures and tremors Continuously agitated, wanted AMA, improved with LORAZEPAM plus DIAZEPAM x 1 Per social insurance specialist, patient not currently having SI or HI, however pending final crisis evaluation Will continue with current management, p.o. LORAZEPAM q.4h. scheduled and CIWA. Will reevaluate once DIAZEPAM wears out ? Admit to telemetry ? Started banana bag ? CIWA protocol ? Continue LORAZEPAM 4 mg PO q.4h. scheduled ? Discontinued DIAZEPAM 10 mg q.6h. ? Seizure precaution ? IV fluid maintenance at 150 cc/H ? Physical therapy ? tax services professional # SVT, s/p cardioversion # Acute troponinemia, likely type II NSTEMI # Tachycardia SVT likely /2 alcohol withdrawal Presented with HR 168, failed ADENOSINE and DILTIAZEM, subsequently cardioverted Repeat EKG sinus tachycardia, telemetry showed persistent sinus tachycardia, HR around 100 Troponins 0.112 > 0.231 > 0.213, likely demand ischemia in settings of tachycardia Denies chest pain or shortness of breath Pending echo and cardiology recommendations ? Telemetry ? Treating underlying cause # Suicidal ideation, with suicidal attempt # Depression Reports binge drinking since recently diagnosed with elevated PSA Patient reports feeling depressed after the news, admits to overreacting, he quit his job, and resorted to alcohol use, has been drinking 2 bottles of whiskey daily Patient lives alone, had attempted to strangulate himself but failed States he has been having suicidal ideation which is why he continued drinking alcohol to end his life. No previous history of psych disorder Currently denies homicidal and suicidal ideation Patient states he is ready to quit drinking and go back to his normal life ? Consult social insurance specialist ? Suicidal precautions # Acute transaminitis Admission AST 192, ALT 120, consistent with alcoholic hepatitis pattern History of alcohol abuse, No history of liver disease Denies abdominal pain, patient no jaundice, no scleral icterus Anticipate improvement with current management No signs of active bleed, coag panel within normal limits ? Daily CBC and CMP Health maintenance Diet: NPO GI prophylaxis: PROTONIX DVT prophylaxis: HEPARIN Antibiotics: Not indicated CODE STATUS: Full code Disposition: Pending social service evaluation and controlling withdrawal symptoms Patient case was discussed with attending, Santos Fuller MD and senior residents Dr. Majano and Dr. Weir. Lindsey Rasmussen DO PGYI Attending Provider Attestation/Addendum I reviewed labs, imaging, EKG, home medications and prior available records. Face to face evaluation was performed by me. I have personally examined the patient and discussed assessment and plan with the IM team. I reviewed the resident note and agree with the plan with exceptions as below. 53-year-old male with history of depression who presented with a chief complaint of suicidal ideation and altered mental status. He was found to have SVT in the setting of alcohol intoxication, in addition to transaminitis, and non-STEMI. SVT: Presented on admission. Status post IV adenosine. Heart rate was WNL at the time of my evaluation. Likely in the setting of alcohol intoxication. Continue management as below. Acute encephalopathy: Likely in the setting of alcohol intoxication. Supportive care with IV fluids. Start thiamine and folic acid. Monitor LFTs. Suicidal ideation: In the setting of history of untreated depression. Patient later denied any suicidal ideation or attempt however he does not have the capacity to leave AGAINST MEDICAL ADVICE as he is being treated for alcohol withdrawal and is delirious. Discussed with social insurance analyst and risk-management. Alcohol intoxication: Reported as intentional suicide attempt. Supportive care as above. Elevated troponin: Likely type II non-STEMI in the setting of SVT and alcohol intoxication. Management as above. Continue telemetry. Consulted cardiology. Thrombocytopenia: Mild. No signs of active bleeding. Monitor platelet level.
[2024-08-27 08:03] LABS: Alanine Aminotransferase 96 U/L (10-49); Albumin, Serum 3.1 gm/dL (3.5-5.0); Albumin/Globulin Ratio 1.6 (1.2-2.2); Alkaline Phosphatase 81 U/L (46-116); Anion Gap 7 (7-16); Aspartate Amino Transferase 150 U/L (0-34); BUN/Creatinine Ratio 19 Ratio (12-20); Bilirubin,Total 1.2 mg/dL (0.3-1.2); Blood Urea Nitrogen 17 mg/dL (9-23); Calcium 7.6 mg/dL (8.3-10.6); Calcium (Corrected) 8.3 mg/dL (8.5-10.1); Chloride 103 mMol/L (98-107); Creatinine (Component) 0.9 mg/dL (0.6-1.3); Estimated Creatinine Clearance 86.7 mL/min (>60); Globulin 1.9 gm/dL (2.3-3.5); Glucose 85 mg/dL (74-106); Magnesium 2.2 mg/dL (1.6-2.6); Osmolality,Calculated 266 (275-295); Phosphorous 3.1 mg/dL (2.4-5.1); Sodium 133 mMol/L (136-145); eGFR > 60 See Note
[2024-08-27 08:16] LABS: Troponin I 0.213 ng/mL (0.0-0.045)
[2024-08-27] MEDS: THIAMINE 100 MG TABLET PO ×2 (08:41→20:07)
[2024-08-27] MEDS: LORazepam 0.5 MG TABLET 2 MG PO ×2 (08:41→10:29)
[2024-08-27] MEDS: FOLIC ACID 1 MG TABLET PO ×2 (08:42→20:07)
[2024-08-27] MEDS: PANTOPRAZOLE INJ 40 MG VIAL IVP (08:42)
--- NOTE | 2024-08-27 09:15 | ECHO_ITS ---
Transthoracic Echo Report Ht (in): 67 Wt (lb): 170 Exam Location: [facility] Status: Inpatient It Service Manager: Leticia Golden Indications: Procedure Performed: BP: 120 / 80 HR: 109 Rhythm: Tachycardia Technical Quality: Fair MEASUREMENTS (Male / Female) Normal Values 2D ECHO LV Diastolic Diameter PLAX 5.0 cm 4.2 - 5.9 / 3.9 - 5.3 cm LV Systolic Diameter PLAX 3.5 cm IVS Diastolic Thickness 0.9 cm 0.6 - 1.0 / 0.6 - 0.9 cm LVPW Diastolic Thickness 0.8 cm 0.6 - 1.0 / 0.6 - 0.9 cm LV Relative Wall Thickness 0.3 LVOT Diameter 2.3 cm LA Volume Index 24.0 cm?/m? 16 - 28 cm?/m? Ascending Aorta Diameter 3.2 cm M-MODE Aortic Root Diameter MM 3.2 cm LA Systolic Diameter MM 3.5 cm LA Ao Ratio MM 1.1 AV Cusp Separation MM 2.4 cm DOPPLER AV Peak Velocity 156.0 cm/s AV Peak Gradient 9.7 mmHg AV Mean Gradient 5.0 mmHg AV Velocity Time Integral 27.1 cm LVOT Peak Velocity 115.0 cm/s LVOT Peak Gradient 5.3 mmHg LVOT Velocity Time Integral 20.7 cm LVOT Cardiac Index 4872.4 cm?/min?m? AV Area Cont Eq vti 3.2 cm? AV Area Cont Eq pk 3.1 cm? MV Peak Velocity 67.4 cm/s MV Peak Gradient 1.8 mmHg MV Mean Velocity 44.2 cm/s MV Mean Gradient 1.0 mmHg MV Area PHT 4.9 cm? Mitral E Point Velocity 67.4 cm/s Mitral A Point Velocity 69.4 cm/s Mitral E to A Ratio 1.0 LV E' Lateral Velocity 13.1 cm/s Mitral E to LV E' Lateral Ratio 5.1 LV E' Septal Velocity 9.8 cm/s Mitral E to LV E' Septal Ratio 6.9 FINDINGS Left Ventricle Normal left ventricular size, wall thickness, systolic function with no obvious regional wall motion abnormalities. The ejection fraction is visually estimated at 50-55%. Right Ventricle The right ventricle is normal in size and systolic function. Left Atrium The left atrium is normal by two-dimensional, color flow and Doppler imaging with no structural abnormalities, no thrombus formation present. Right Atrium The right atrium is normal by two-dimensional imaging, color flow and Doppler imaging with no struct ural abnormalities, no thrombus formation present. Atrial Septum The interatrial septum appears normal with no evidence of a shunt. Aorta The aorta is normal by two-dimensional, color flow and Doppler interrogation. Mitral Valve The mitral valve is normal by two-dimensional, color flow and Doppler interrogation. There is trace mitral valve regurgitation. Aortic Valve The aortic valve is trileaflet and normal by two-dimensional, color flow and Doppler interrogation. There is no significant aortic valve regurgitation. Tricuspid Valve The tricuspid valve is normal by two-dimensional, color flow and Doppler interrogation. There is tra ce tricuspid valve regurgitation. Pulmonic Valve There is no significant pulmonic valve regurgitation. Vessels The pulmonary artery appears normal. The inferior vena cava pulmonary and hepatic veins appear niecy l. Pericardium The pericardium is normal by two-dimensional imaging. There is no significant pericardial effusion. CONCLUSIONS Indication: SVT/Elevated troponin Normal LV size and function. Stage I diastolic dsyfunction. Estimated EF 50-55% Normal RV size and function. Trace MR, TR. Priyank Kim (Electronically Signed) Final Date: 27 August 2024 18:50
--- NOTE | 2024-08-27 09:20 | PD.RESCONSUL ---
HPI Data of Consult Requesting Physician: Santos Fuller MD Admitting Provider: Santos Fuller MD Attending Provider: Santos Fuller MD Primary Care Provider: Physician No Primary/Family Consult Narrative Reason for consult: SVT History of present illness: 53-year-old male with past medical history of hypothyroidism was admitted to the hospital on 08/26/2024 due to SVT s/p cardioversion, alcohol intoxication, suicidal ideation, and likely alcohol withdrawal. 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 Initially was afebrile, tachycardic, and normotensive. Initial labs showed hemoglobin 16.7, potassium 4, BUN 13, creatinine 1.1, magnesium 2.4, AST 192, ALT 120, troponins 0.112 and peaked at 0.231, lipase 79, and ethyl alcohol 395.2. Initial imaging included chest x-ray which had no pneumonia or pulmonary edema. Initial EKG showed supraventricular tachycardia with a rate of 170s. Patient was given adenosine (one-time dose 6 mg and 12 mg twice) and diltiazem (25 mg x 1), but patient remained in SVT. Patient was cardioverted on 08/26/2024 with 1 shock of 50 J and patient converted to sinus rhythm. During my assessment patient was AO x 2 (not to time) and stated that he has been drinking around 1.7 L of whiskey since early July. He stated that his last drink was around 2 days ago. Patient stated that prior to this he had not been hospitalized for alcohol withdrawal or intoxication and that he just recently started heavily drinking since early July after he was given the news of an elevated PSA. Patient stated that prior to this he had been sober for a whole year, and that prior to this he will had episodes of binge drinking around 12 cans of beer per day for a span of 3 days around every 4 months. Patient stated that he does not have any visual or auditory hallucinations at this time. He did not endorse palpitations for the past few days, but denied any chest pain, weakness, dizziness, numbness, or headaches. Patient states that he has not had any heart issues in the past. Of note, patient was seen in our ER on 08/19/2024 due to similar symptoms and his heart rate was in the high 120s, but no EKG on file. PMH: Hypothyroidism Surgical Hx: None Social Hx: Admits to smoking, admits alcohol use (1.7 L of whiskey daily since july), denies any recent drug use. 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 HEENT: Denies hearing loss, Denies ear pain, Denies postnasal drip, Denies double vision, Denies blurry vision. Respiratory: Denies shortness of breath, Denies cough, Denies wheezing. Cardiovascular: Denies chest pain, Admits palpitations, Denies sudden loss of consciousness. GI: Denies blood in stool, Denies constipation, Denies abdominal pain, Denies difficulty swallowing, Denies nausea or vomit. : Denies urinary incontinence, Denies pain while urinating, Denies increased urinary frequency. MSK: Denies joint pain, Denies joint swelling, Denies numbness. Skin: Denies rash, Denies itching, Denies easy bruising. Neuro: Denies headaches, Denies dizziness, Denies seizures. Past Medical History Past Medical History Comments PMH COMMENT: PMH: Hypothyroidism Surgical Hx: None Social Hx: Admits to smoking, admits alcohol use (1.7 L of whiskey daily since july), denies any recent drug use. 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 Anicteric, vision grossly intact. Ears: No ear pain, no ear discharge, Hearing grossly intact. Nose: No nasal discharge. Mouth/Throat: Dry mucous membranes, no redness, no lesions. Neck: Neck supple, non-tender, no cervical lymphadenopathy. Lungs: Clear ANNIKA to auscultation and percussion, No accessory muscle use. Cardio: Normal S1/S2, regular rhythm, no murmurs, no JVD assessed Abdomen: Soft, non-tender, no palpable masses, peristalsis present, no guarding or rebound. Extremities: Symmetrical, no significant deformities, no peripheral edema , non-tender, peripheral pulses presents. Skin: No rashes, no lesions, warm to touch. Neuro: No focal neurological deficits. motor and sensory intact, tremors and delay response to commands. Psych: Anxious Results Labs 08/28/24 05:20 08/28/24 05:20 Labs: Short CBC 08/26/24 08/27/24 Range/Units 15:55 07:11 WBC 8.6 5.7 (3.8-10.6) Thou/mm3 Hgb 16.7 H 12.1 L D (13.5-16.0) g/dL Hct 47.8 35.3 L D (41.0-53.0) % Plt Count 152 109 L D (140-440) Thou/mm3 BMP 08/26/24 08/27/24 15:55 07:11 Sodium 138 133 L Potassium 4.0 4.0 Chloride 99 103 Carbon Dioxide 27.2 23.0 BUN 13 17 Creatinine 1.1 0.9 Glucose 94 85 Calcium 8.4 7.6 L Cardiac Enzymes 08/26/24 08/26/24 08/27/24 Range/Units 15:55 18:06 01:14 Troponin I 0.112 H* Cancelled 0.231 H* (0.0-0.045) ng/mL 08/27/24 Range/Units 07:11 Troponin I 0.213 H* (0.0-0.045) ng/mL Liver Function 08/26/24 08/27/24 Range/Units 15:55 07:11 Total Bilirubin 0.8 1.2 (0.3-1.2) mg/dL AST 192 H 150 H (0-34) U/L ALT 120 H 96 H (10-49) U/L Alkaline Phosphatase 111 81 D (46-116) U/L Albumin 4.1 3.1 L D (3.5-5.0) gm/dL Quality Measures Quality Measures none Medications Home Medications and Allergies Home Medications ?Medication ?Instructions ?Recorded ?Confirmed ?Type levothyroxine 175 mcg tablet 175 mcg PO QDAY 08/26/24 08/27/24 History (Synthroid) Allergies Allergy/AdvReac Type Severity Reaction Status Date / Time No Known Allergies Allergy Verified 08/26/24 15:26 Visit Medications Acetaminophen (Acetaminophen 325 Mg Tablet) 650 mg PO Q6H PRN PRN Reason: Fever >100.4 Stop: 09/25/24 18:17 Acetaminophen (Acetaminophen 325 Mg Tablet) 650 mg PO Q6H PRN PRN Reason: PAIN SCALE 1-3 (mild Stop: 09/25/24 18:17 Folic Acid (Folic Acid 1 Mg Tablet) 1 mg PO BID [facility] Stop: 08/31/24 20:59 Last Admin: 08/27/24 08:42 Dose: 1 mg Heparin Sodium (Porcine) (Heparin Sod Inj 5000 Unit/Ml Vial) 5,000 unit SC Q8HR [facility] Stop: 09/09/24 21:59 Last Admin: 08/27/24 05:37 Dose: 5,000 unit Sodium Chloride (Ns) 1,000 mls @ 150 mls/hr IV .Q6H40M [facility] Stop: 08/27/24 14:29 Last Admin: 08/27/24 05:40 Dose: 150 mls/hr Lorazepam (Lorazepam 2 Mg/Ml Vial) 0.5 mg IVP Q4H PRN PRN Reason: CIWA 2-6 Stop: 08/31/24 19:00 Lorazepam (Lorazepam 2 Mg/Ml Vial) 1 mg IV Q2HR PRN PRN Reason: CIWA SCORE 7-11 Stop: 08/31/24 18:17 Lorazepam (Lorazepam 2 Mg/Ml Vial) 2 mg IVP Q1HR PRN PRN Reason: CIWA 12-16 Stop: 08/31/24 18:17 Last Admin: 08/27/24 06:26 Dose: 2 mg Lorazepam (Lorazepam 0.5 Mg Tablet) 2 mg PO Q4HR [facility] Stop: 09/01/24 07:44 Last Admin: 08/27/24 08:41 Dose: 2 mg Ondansetron HCl (Ondansetron Inj 2 Mg/Ml Inj 2 Ml) 4 mg IV Q6H PRN; Protocol PRN Reason: NAUSEA OR VOMITING Stop: 09/25/24 18:17 Oxycodone/Acetaminophen (Oxycodone/Apap 5/325 Tablet) 1 tab PO Q6H PRN PRN Reason: PAIN SCALE 4-6 (Moderate Stop: 08/31/24 18:17 Last Admin: 08/26/24 23:27 Dose: 1 tab Pantoprazole Sodium (Pantoprazole Inj 40 Mg Vial) 40 mg IVP QDAY DEANNA Stop: 09/25/24 18:29 Last Admin: 08/27/24 08:42 Dose: 40 mg Sennosides (Senna Tablet) 1 tab PO QDAY PRN; Protocol PRN Reason: constipation Stop: 09/25/24 18:17 Thiamine HCl (Thiamine 100 Mg Tablet) 100 mg PO BID [facility] Stop: 08/31/24 20:59 Last Admin: 08/27/24 08:41 Dose: 100 mg Discontinued Medications Adenosine (Adenosine Inj 3 Mg/Ml Vial) 12 mg IVP X1 ONE Stop: 08/26/24 16:13 Last Admin: 08/26/24 16:18 Dose: 12 mg Adenosine (Adenosine Inj 3 Mg/Ml Vial) 6 mg IVP X1 ONE Stop: 08/26/24 16:13 Last Admin: 08/26/24 16:15 Dose: 6 mg Adenosine (Adenosine Inj 3 Mg/Ml Vial) 12 mg IVP X1 ONE Stop: 08/26/24 16:19 Last Admin: 08/26/24 16:26 Dose: 12 mg Aspirin (Aspirin 325 Mg Tablet) 325 mg PO X1 ONE Stop: 08/26/24 17:31 Last Admin: 08/26/24 17:56 Dose: 325 mg Diazepam (Diazepam 5 Mg Tablet) 10 mg PO X1 ONE Stop: 08/26/24 18:19 Last Admin: 08/26/24 20:59 Dose: Not Given Diltiazem HCl (Diltiazem Inj 5 Mg/Ml Vial 5 Ml) 25 mg IV X1 ONE Stop: 08/26/24 16:22 Last Admin: 08/26/24 16:25 Dose: 25 mg Etomidate (Etomidate Inj 2 Mg/Ml Vial 10 Ml) 20 mg IVP X1 ONE Stop: 08/26/24 16:28 Last Admin: 08/26/24 16:57 Dose: Not Given Etomidate (Etomidate Inj 2 Mg/Ml Vial 10 Ml) 20 mg IVP X1 ONE Stop: 08/26/24 16:29 Last Admin: 08/26/24 16:35 Dose: 20 mg Folic Acid (Folic Acid 1 Mg Tablet) 1 mg PO QDAY [facility] Stop: 09/28/24 08:59 Folic Acid (Folic Acid Inj 1 Mg/0.2 Ml) 1 mg IVP QDAY [facility] Stop: 08/29/24 08:59 Sodium Chloride (Ns) 1,000 mls @ 999 mls/hr IV .Q1H1M ONE Stop: 08/26/24 17:00 Last Infusion: 08/26/24 17:58 Dose: Infused Sodium Chloride (Ns) 1,000 mls @ 999 mls/hr IV .Q1H1M ONE Stop: 08/26/24 18:30 Last Infusion: 08/26/24 20:55 Dose: Infused Magnesium Sulfate (Magnesium Sulfate Ivpb) 2 gm in 50 mls @ 25 mls/hr IV X1 ONE Stop: 08/26/24 20:27 Last Admin: 08/26/24 20:47 Dose: 25 mls/hr Lorazepam (Lorazepam 0.5 Mg Tablet) 0.5 mg PO Q4HR PRN PRN Reason: CIWA Score 2-6 Stop: 08/31/24 18:17 Lorazepam (Lorazepam 2 Mg/Ml Vial) 1 mg IV Q2HR PRN PRN Reason: CIWA SCORE 7-11 Stop: 08/31/24 18:17 Lorazepam (Lorazepam 2 Mg/Ml Vial) 2 mg IVP Q1HR PRN PRN Reason: CIWA 12-16 Stop: 08/31/24 18:17 Last Admin: 08/27/24 01:49 Dose: 2 mg Lorazepam (Lorazepam 0.5 Mg Tablet) 2 mg PO Q4H [facility] Stop: 08/31/24 18:29 Last Admin: 08/26/24 20:54 Dose: Not Given Lorazepam (Lorazepam 2 Mg/Ml Vial) 2 mg IVP Q4H [facility] Stop: 08/31/24 18:59 Last Admin: 08/26/24 23:19 Dose: Not Given Lorazepam (Lorazepam 2 Mg/Ml Vial) 2 mg IVP Q4H PRN PRN Reason: WITHDRAWAL SYMPTOMS Stop: 12/13/24 18:59 Lorazepam (Lorazepam 0.5 Mg Tablet) 1 mg PO Q4HR [facility] Stop: 09/01/24 07:44 Thiamine HCl (Thiamine Inj 100 Mg/Ml Vial 2 Ml) 100 mg IVP QDAY [facility] Stop: 08/29/24 18:29 Last Admin: 08/26/24 21:01 Dose: Not Given Thiamine HCl (Thiamine 100 Mg Tablet) 100 mg PO QDAY [facility] Stop: 09/28/24 08:59 Assessment & Plan Plan 53-year-old male with past medical history of hypothyroidism was admitted to the hospital on 08/26/2024 due to SVT s/p cardioversion, alcohol intoxication, suicidal ideation, and likely alcohol withdrawal. 1. Supraventricular tachycardia s/p cardioversion on 08/26/2024 2. Elevated troponins, NSTEMI type II likely demand ischemia ?Patient has been complaining of palpitations for the last few days. ?Patient initially came in with heart rate in the 160s ?Initial EKG showed supraventricular tachycardia with a heart rate of 170 ? Patient was given adenosine (one-time dose 6 mg and 12 mg twice) and diltiazem (25 mg x 1), but patient remained in SVT. ?Patient was cardioverted on 08/26/2024 with 1 shock of 50 J and patient converted to sinus rhythm. ?Repeat EKG showed sinus rhythm. ?Initial troponins were 0.112, and peaked at 0.231 and down trended to 0.213. ?SBT could have been triggered due to excessive alcohol use versus uncontrolled hypothyroidism versus emotional stress. ?Overnight patient's telemetry showed sinus tachycardia of heart rate of low 110s. Plan: ?Will follow-up on echo ?Recommend to get TSH and free T4 to assess for possible triggers of SVT. ? Recommend to keep potassium magnesium above 4 and 2 respectively to avoid any further arrhythmias ?Recommend close monitoring for any recurrent episodes of SVT 3. Alcohol intoxication 4. Alcohol withdrawal 5. Suicidal ideation? 6. Depression 7. Transaminitis ?Initially patient came in with an alcohol levels of 395.2 ? Patient has been drinking 1.7 L of whiskey every day since early July ? Last drink was around 2 days ago ? AST 192, ALT 120, alkaline phosphatase 111 ? Patient has no visual or auditory hallucinations at this time ? CIWA score 13 overnight ? Continue current management as per primary care team 8. Hypothyroidism ? Patient has a history of hypothyroidism and states she takes levothyroxine ? Continue current management as per primary care team Continue rest of management as per primary team. We are grateful to be able to participate in Mr. Coates's care. Thank you for the consult Plan of care discussed with attending Local Sales Manager, Dr. Judy Tony MD PGY-1 Attending Provider Attestation/Addendum I have personally seen and examined the patient separately on the above date of service and discussed the plan of care with the resident. I reviewed the resident Dr. Mckeon consultation progress note and agree with the resident findings and plan in the note above and have also edited the documentation to reflect my findings and plan. Patient presented with SVT with a heart rate of around 170 bpm. Did not convert to normal sinus rhythm given with adenosine 12 mg x 2, diltiazem or other medications required after cardioversion.. Patient was severely dehydrated on admission with hemoglobin of 16 hematocrit 12.1 along with acute kidney injury with improving renal function. Patient was also and with severe alcohol intoxication at 394 Mg per DL. Reviewed the EKG and difficult to distinguish whether patient has any AVNRT or other kind of atrial arrhythmias. Patient SVT mostly in the setting of severe dehydration and acute alcohol intoxication which have improved now. Patient will need further workup with long-term Holter monitoring as outpatient to evaluate for any atrial arrhythmias. Patient recommended to strictly stop drinking altogether and. Recommend to keep potassium greater than 4 magnesium less than 2.0 at all times. Patient will need outpatient alcohol rehab as the patient has a tendency of significant alcohol abuse with binge drinking from time to time. Patient troponin elevated at 0.23 and now downtrending. Mostly secondary to supply/demand mismatch in the setting of SVT with severe dehydration and alcohol intoxication as noted above. Echocardiogram ordered and will follow-up on the echocardiogram results and will plan further workup based on it if the EF is low or if there is any regional wall motion abnormalities. Check TSH A1c as well as lipid profile for further cardiac restratification. Patient will need free T4 and TSH to rule out any kind of hypothyroidism as part of the arrhythmias.Continue to monitor on telemetry for any kind of rhythm disturbances. Recommend to start patient on beta-faye multiple XL 25 mg once daily and continue to monitor closely. Priyank Kim M.D. Interventional Cardiology
--- NOTE | 2024-08-27 10:45 | PC.SS ---
This is 53-year-old, , single male who presented to the ED for alcohol intoxication. Patient appeared alert and oriented to self, place and situation. Patient was pleasant, his mood and behavior were ordinary. Patient's thought process was logical and organized. Patient was able to verify his address and phone number. Patient reported that he rents a room from a friend. Patient reported that he works for [employer]; however, it does not pay very well. Patient reported that prior to admission, he was able to complete his ADLs, no DME use. Patient denied any diagnosis for mental health illnesses. Patient denied any HI, SI, A/h or V/h. He reported that he made the statement of wanting to strangulate himself due to wanting attention and to be taken seriously for his alcohol use. Patient reported that he was sober for a year prior to relapsing. Patient reported that for the last 12 days, he has been drinking at least a bottle of whiskey, and he is not eating. Patient reported that he became fearful after his PSA test resulted elevated. Now, patient reported that he mainly drinks due to feeling happy for sometime. Patient reported that he has attended inpatient rehabilitation about twice in his life; also, he follows up with AA, but he stopped all services. Patient reported that he is aware that he needs to stop drinking; however, he does not know how. Patient is agreeable with being connected to an inpatient alcohol rehab when medically clear. At this time, patient is pending medical clearance. When medically clear, SS will follow up to discuss discharge plan.
--- NOTE | 2024-08-27 11:54 | PC.NURSE ---
patient is very restless ,agitated , and he wants to go home now , dr. deleon is aware new order to give 10mg iv diazepam,
[2024-08-27] MEDS: DIAZEPAM INJ 5 MG/ML VIAL 2 ML 10 MG IVP (12:49)
[2024-08-27] MEDS: LORazepam 2 MG/ML VIAL 1 MG IV (21:32)
[2024-08-28] VITALS (10 sets, daily range): BP systolic 120–133; BP diastolic 68–90; PULSE 70–103; RESP 18–97; TEMP 36.3–37.1; O2SAT 94–97; BMI 28.5
[2024-08-28] MEDS: LORazepam 2 MG/ML VIAL IVP ×6 (02:07→20:49)
[2024-08-28] MEDS: oxyCODONE/APAP 5/325 TABLET 1 TAB PO (03:39)
[2024-08-28] MEDS: LEVOTHYROXINE SODIUM 25 MCG TABLET 175 MCG PO (05:09)
[2024-08-28] MEDS: HEPARIN SOD INJ 5000 UNIT/ML VIAL SC ×2 (05:11→15:06)
[2024-08-28 06:18] LABS: Basophils % (Auto) 0 % (0-2.5); Eosinophils # (Auto) 0.1 Thou/mm3 (0.0-0.5); Eosinophils % (Auto) 2 % (0-10); Hemoglobin 12.1 g/dL (13.5-16.0); Immature Granulocytes % (Auto) 1 % (0-0); Immature Granulocytes Auto 0.03 Thou/mm3 (0.00-0.00); Lymphocytes # (Auto) 1.2 Thou/mm3 (1.0-4.8); Lymphocytes % (Auto) 19 % (10-50); Mean Corpuscular HGB Conc 35.6 g/dl (31.0-37.0); Mean Corpuscular Hemoglobin 32.3 pg (25.0-35.0); Mean Corpuscular Volume 91 fL (80-100); Monocytes # (Auto) 0.6 Thou/mm3 (0.0-0.8); Monocytes % (Auto) 9 % (0-12); Neutrophils # (Auto) 4.1 Thou/mm3 (1.8-7.7); Neutrophils % (Auto) 69 % (37-80); Nucleated Red Blood Cell % 0 /100 WBC (0); Platelet Count 80 Thou/mm3 (140-440); RDW Standard Deviation 40.2 fL (35.1-43.9); Red Blood Count 3.75 Miln/mm3 (4.50-5.90)
[2024-08-28 07:09] LABS: Alanine Aminotransferase 75 U/L (10-49); Albumin, Serum 3.3 gm/dL (3.5-5.0); Albumin/Globulin Ratio 1.6 (1.2-2.2); Alkaline Phosphatase 89 U/L (46-116); Anion Gap 7 (7-16); Aspartate Amino Transferase 130 U/L (0-34); BUN/Creatinine Ratio 14 Ratio (12-20); Bilirubin,Total 1.1 mg/dL (0.3-1.2); Blood Urea Nitrogen 14 mg/dL (9-23); Calcium 8.3 mg/dL (8.3-10.6); Calcium (Corrected) 8.9 mg/dL (8.5-10.1); Carbon Dioxide 26.4 mMol/L (20.0-31.0); Chloride 98 mMol/L (98-107); Estimated Creatinine Clearance 85.9 mL/min (>60); Globulin 2.1 gm/dL (2.3-3.5); Glucose 99 mg/dL (74-106); Osmolality,Calculated 263 (275-295); Phosphorous 2.3 mg/dL (2.4-5.1); Potassium 3.6 mMol/L (3.4-5.1); Sodium 131 mMol/L (136-145); Total Protein 5.4 gm/dL (5.7-8.2); eGFR > 60 See Note
[2024-08-28] MEDS: PANTOPRAZOLE INJ 40 MG VIAL IVP (08:12)
[2024-08-28] MEDS: FOLIC ACID 1 MG TABLET PO ×2 (08:12→20:44)
[2024-08-28] MEDS: THIAMINE 100 MG TABLET PO ×2 (08:13→20:44)
[2024-08-28] MEDS: POTASSIUM CHLORIDE 20 mEq TABCR 40 MEQ PO (08:32)
--- NOTE | 2024-08-28 08:46 | PD.RESPRO ---
Documentation for date of: 08/28/24 Subjective Subjective Interval history: Patient seen at bedside this morning. No overnight events. Patient still in alcohol withdrawal with CIWA 13 overnight. Recommend tight control of patients hypothyroidism as it can be a triggering factor for SVT. Echo had the following findings: Normal LV size and function. Stage I diastolic dsyfunction. Estimated EF 50-55% Normal RV size and function. Trace MR, TR. Potassium 3.6 and Mg 2 today, recommend to replete potassium and mg to keep above 4 and 2 respectively. metoprolol XL 50 mg once daily started by primary team and recommend to contiue the same. cardiolology will sig off and please call us with any questions or concerns Exam Vital Signs Temp Pulse Resp BP Pulse Ox O2 Del Method O2 Flow Rate 98.0 F 77 22 H 133/88 H 96 Room Air 8 08/28/24 08:00 08/28/24 08:44 08/28/24 08:44 08/28/24 08:00 08/28/24 08:00 08/28/24 08:00 08/26/24 16:49 Narrative Exam General: A/O x2 (not to time), no acute distress, anxious appearing Eyes: PERRL, EOMI. Anicteric, vision grossly intact. Ears: No ear pain, no ear discharge, Hearing grossly intact. Nose: No nasal discharge. Mouth/Throat: Dry mucous membranes, no redness, no lesions. Neck: Neck supple, non-tender, no cervical lymphadenopathy. Lungs: Clear ANNIKA to auscultation and percussion, No accessory muscle use. Cardio: Normal S1/S2, regular rhythm, no murmurs, no JVD assessed Abdomen: Soft, non-tender, no palpable masses, peristalsis present, no guarding or rebound. Extremities: Symmetrical, no significant deformities, no peripheral edema , non-tender, peripheral pulses presents. Skin: No rashes, no lesions, warm to touch. Neuro: No focal neurological deficits. motor and sensory intact, tremors and delay response to commands. Psych: Anxious Objective Labs 08/28/24 05:20 08/28/24 05:20 Labs: Laboratory Results - last 24 hr 08/28/24 05:20 WBC 6.0 RBC 3.75 L Hgb 12.1 L Hct 34.0 L MCV 91 MCH 32.3 MCHC 35.6 RDW Std Deviation 40.2 Plt Count 80 L D Neut % (Auto) 69 Lymph % (Auto) 19 Gibson % (Auto) 9 Eos % (Auto) 2 Baso % (Auto) 0 Neut # (Auto) 4.1 Lymph # (Auto) 1.2 Gibson # (Auto) 0.6 Eos # (Auto) 0.1 Baso # (Auto) 0.0 Immature Gran # (Auto) 0.03 H Absolute Nucleated RBC 0.00 Immature Gran % 1 H Nucleated RBC % 0 Sodium 131 L Potassium 3.6 Chloride 98 Carbon Dioxide 26.4 Anion Gap 7 BUN 14 Creatinine 1.0 Estim Creat Clear Calc 85.9 eGFR > 60 BUN/Creatinine Ratio 14 Glucose 99 Calculated Osmolality 263 L Calcium 8.3 Corrected Calcium 8.9 Phosphorus 2.3 L Magnesium 2.0 Total Bilirubin 1.1 AST 130 H ALT 75 H Alkaline Phosphatase 89 Total Protein 5.4 L Albumin 3.3 L Globulin 2.1 L Albumin/Globulin Ratio 1.6 Quality Measures Quality Measures none Assessment & Plan Assessment Current Active Medications: Generic Name Dose Route Start Last Admin Trade Name Freq PRN Reason Stop Dose Admin Acetaminophen 650 mg 08/26/24 18:18 Acetaminophen 325 Mg Tablet PO 09/25/24 18:17 Q6H PRN Fever >100.4 Acetaminophen 650 mg 08/26/24 18:18 Acetaminophen 325 Mg Tablet PO 09/25/24 18:17 Q6H PRN PAIN SCALE 1-3 (mild Folic Acid 1 mg 08/26/24 21:00 08/28/24 08:12 Folic Acid 1 Mg Tablet PO 08/31/24 20:59 1 mg BID DEANNA Administration Heparin Sodium (Porcine) 5,000 unit 08/26/24 22:00 08/28/24 05:11 Heparin Sod Inj 5000 Unit/Ml Vial SC 09/09/24 21:59 5,000 unit Q8HR DEANNA Administration Levothyroxine Sodium 175 mcg 08/28/24 06:00 08/28/24 05:09 Levothyroxine Sodium 25 Mcg Tablet PO 09/27/24 05:59 175 mcg ACBR DEANNA Administration Lorazepam 0.5 mg 08/26/24 19:01 Lorazepam 2 Mg/Ml Vial IVP 08/31/24 19:00 Q4H PRN CIWA 2-6 Lorazepam 1 mg 08/27/24 06:01 08/27/24 21:32 Lorazepam 2 Mg/Ml Vial IV 08/31/24 18:17 1 mg Q2HR PRN Administration CIWA SCORE 7-11 Lorazepam 2 mg 08/27/24 06:01 08/28/24 05:10 Lorazepam 2 Mg/Ml Vial IVP 08/31/24 18:17 2 mg Q1HR PRN Administration CIWA 12-16 Lorazepam 2 mg 08/27/24 16:00 08/28/24 08:12 Lorazepam 2 Mg/Ml Vial IVP 09/01/24 15:59 2 mg Q4H DEANNA Administration Lorazepam 2 mg 08/27/24 14:33 Lorazepam 0.5 Mg Tablet PO 09/01/24 14:32 Q6H PRN BREAKTHROUGH AGITATION Ondansetron HCl 4 mg 08/26/24 18:18 Ondansetron Inj 2 Mg/Ml Inj 2 Ml IV 09/25/24 18:17 Q6H PRN NAUSEA OR VOMITING Protocol Oxycodone/Acetaminophen 1 tab 08/26/24 18:18 08/28/24 03:39 Oxycodone/Apap 5/325 Tablet PO 08/31/24 18:17 1 tab Q6H PRN Administration PAIN SCALE 4-6 (Moderate Pantoprazole Sodium 40 mg 08/26/24 18:30 08/28/24 08:12 Pantoprazole Inj 40 Mg Vial IVP 09/25/24 18:29 40 mg QDAY DEANNA Administration Sennosides 1 tab 08/26/24 18:18 Senna Tablet PO 09/25/24 18:17 QDAY PRN constipation Protocol Thiamine HCl 100 mg 08/26/24 21:00 08/28/24 08:13 Thiamine 100 Mg Tablet PO 08/31/24 20:59 100 mg BID DEANNA Administration Plan 53-year-old male with past medical history of hypothyroidism was admitted to the hospital on 08/26/2024 due to SVT s/p cardioversion, alcohol intoxication, suicidal ideation, and likely alcohol withdrawal. 1. Supraventricular tachycardia s/p cardioversion on 08/26/2024 2. Elevated troponins, NSTEMI type II likely demand ischemia 3. Acute decompensated diastolic heart failure (EF 50-55%) ?Patient has been complaining of palpitations for the last few days. ?Patient initially came in with heart rate in the 160s ?Initial EKG showed supraventricular tachycardia with a heart rate of 170 ? Patient was given adenosine (one-time dose 6 mg and 12 mg twice) and diltiazem (25 mg x 1), but patient remained in SVT. ?Patient was cardioverted on 08/26/2024 with 1 shock of 50 J and patient converted to sinus rhythm. ?Repeat EKG showed sinus rhythm. ?Initial troponins were 0.112, and peaked at 0.231 and down trended to 0.213. ?SVT could have been triggered due to excessive alcohol use versus uncontrolled hypothyroidism versus emotional stress. ?Overnight patient's telemetry showed sinus tachycardia of heart rate of low 110s. -Echo had the following findings: Normal LV size and function. Stage I diastolic dsyfunction. Estimated EF 50-55% Normal RV size and function. Trace MR, TR. Plan: -Recommend to continue metoprolol XL 50 mg qday ?Recommend to keep potassium magnesium above 4 and 2 respectively to avoid any further arrhythmias ?Recommend close monitoring for any recurrent episodes of SVT 4. Alcohol intoxication 5. Alcohol withdrawal 6. Suicidal ideation? 7. Depression 8. Transaminitis ?Initially patient came in with an alcohol levels of 395.2 ? Patient has been drinking 1.7 L of whiskey every day since early July ? Last drink was around 2 days ago ? AST 130, ALT 75, alkaline phosphatase 89 ? Patient has no visual or auditory hallucinations at this time ? CIWA score 13 overnight ? Continue current management as per primary care team 9. Hypothyroidism ? Patient has a history of hypothyroidism and states he takes levothyroxine ? Continue current management as per primary care team Continue rest of management as per primary team. Cardiology will sign off. We are grateful to be able to participate in Mr. Coates's care. Thank you for the consult Plan of care discussed with attending Bus Driver Supervisor, Dr. Judy Tony MD PGY-1 Attending Provider Attestation/Addendum I have personally seen and examined the patient separately on the above date of service and discussed the plan of care with the resident. I reviewed the resident Dr. Mckeon consultation progress note and agree with the resident findings and plan in the note above and have also edited the documentation to reflect my findings and plan. Priyank Kim M.D. Interventional Cardiology
[2024-08-28 10:37] LABS: Free T4 (Free Thyroxine) 0.48 ng/dL (0.89-1.76); Thyroid Stimulating Hormone 30.42 uIU/mL (0.55-4.78)
[2024-08-28] MEDS: NAPH,KPH MBDB 1 PACKET (1.5 GM) PO (12:39)
[2024-08-28] MEDS: ACETAMINOPHEN 325 MG TABLET 650 MG PO (12:49)
--- NOTE | 2024-08-28 12:52 | ESPR_ITS ---
Documentation for date of: 08/28/24 Subjective Subjective Interval history: No acute overnight events. Has minor headaches. CIWA overall improving, patient denies visual or auditory hallucinations, tremors, SI or HI. Denies fever, chills, severe headaches, chest pain, sob, cough, GI or urinary symptoms. Exam Vital Signs Temp Pulse Resp BP Pulse Ox O2 Del Method O2 Flow Rate 98.0 F 77 22 H 133/88 H 96 Room Air 8 08/28/24 08:00 08/28/24 08:44 08/28/24 08:44 08/28/24 08:00 08/28/24 08:00 08/28/24 08:00 08/26/24 16:49 Narrative Exam GENERAL: Disheveled appearing male, appears in mild distress HEENT: NCAT.?LUIS. Oral mucosa is moist. Patent Nares NECK: Supple, nontender, no thyromegaly, no meningismus, no JVD, no step offs CHEST: Symmetrical, atraumatic, and with equal expansion, Nontender on palpation no deformity and no crepitus. CARDIOVASCULAR: RRR, no m/g/r LUNGS: CTAB, no w/r/r. Symmetrical chest rise. No intercostal subcostal retraction. ABDOMEN: Soft, flat, nontender. No guarding/rebound tenderness/masses. +BS EXTREMITIES: Nontender.? No edema/cyanosis.?Moves all 4 extremities well, with full ROM and good CSM. SKIN: Cool skin, dry, flushed and sweaty skin, no jaundice/rashes. No scleral icterus MSK: No lumbar or midline, no CVA, no paraspinal muscle spasm or tenderness. NEURO: Mild delayed reaction, muscle movement. Minor tremors on exam bilaterally. SALAZAR x4, CN II-XII grossly intact.?No focal neurologic deficits. PSYCHIATRIC: Depressed mood and affect, cooperative, denies SI or HI Objective Labs 08/29/24 04:59 08/29/24 04:59 Labs: Laboratory Results - last 24 hr 08/28/24 05:20 WBC 6.0 RBC 3.75 L Hgb 12.1 L Hct 34.0 L MCV 91 MCH 32.3 MCHC 35.6 RDW Std Deviation 40.2 Plt Count 80 L D Neut % (Auto) 69 Lymph % (Auto) 19 Rogers % (Auto) 9 Eos % (Auto) 2 Baso % (Auto) 0 Neut # (Auto) 4.1 Lymph # (Auto) 1.2 Rogers # (Auto) 0.6 Eos # (Auto) 0.1 Baso # (Auto) 0.0 Immature Gran # (Auto) 0.03 H Absolute Nucleated RBC 0.00 Immature Gran % 1 H Nucleated RBC % 0 Sodium 131 L Potassium 3.6 Chloride 98 Carbon Dioxide 26.4 Anion Gap 7 BUN 14 Creatinine 1.0 Estim Creat Clear Calc 85.9 eGFR > 60 BUN/Creatinine Ratio 14 Glucose 99 Calculated Osmolality 263 L Calcium 8.3 Corrected Calcium 8.9 Phosphorus 2.3 L Magnesium 2.0 Total Bilirubin 1.1 AST 130 H ALT 75 H Alkaline Phosphatase 89 Total Protein 5.4 L Albumin 3.3 L Globulin 2.1 L Albumin/Globulin Ratio 1.6 TSH 30.42 H Free T4 0.48 L Quality Measures Quality Measures none Assessment & Plan Assessment Current Active Medications: Generic Name Dose Route Start Last Admin Trade Name Freq PRN Reason Stop Dose Admin Acetaminophen 650 mg 08/26/24 18:18 Acetaminophen 325 Mg Tablet PO 09/25/24 18:17 Q6H PRN Fever >100.4 Acetaminophen 650 mg 08/26/24 18:18 08/28/24 12:49 Acetaminophen 325 Mg Tablet PO 09/25/24 18:17 650 mg Q6H PRN Administration PAIN SCALE 1-3 (mild Folic Acid 1 mg 08/26/24 21:00 08/28/24 08:12 Folic Acid 1 Mg Tablet PO 08/31/24 20:59 1 mg BID DEANNA Administration Heparin Sodium (Porcine) 5,000 unit 08/26/24 22:00 08/28/24 05:11 Heparin Sod Inj 5000 Unit/Ml Vial SC 09/09/24 21:59 5,000 unit Q8HR DEANNA Administration Levothyroxine Sodium 125 mcg/ 175 mcg 08/29/24 06:00 Levothyroxine Sodium 50 mcg PO 09/27/24 05:59 ACBR DEANNA Lorazepam 0.5 mg 08/26/24 19:01 Lorazepam 2 Mg/Ml Vial IVP 08/31/24 19:00 Q4H PRN CIWA 2-6 Lorazepam 1 mg 08/27/24 06:01 08/27/24 21:32 Lorazepam 2 Mg/Ml Vial IV 08/31/24 18:17 1 mg Q2HR PRN Administration CIWA SCORE 7-11 Lorazepam 2 mg 08/27/24 06:01 08/28/24 05:10 Lorazepam 2 Mg/Ml Vial IVP 08/31/24 18:17 2 mg Q1HR PRN Administration CIWA 12-16 Lorazepam 2 mg 08/27/24 16:00 08/28/24 12:39 Lorazepam 2 Mg/Ml Vial IVP 09/01/24 15:59 2 mg Q4H DEANNA Administration Lorazepam 2 mg 08/27/24 14:33 Lorazepam 0.5 Mg Tablet PO 09/01/24 14:32 Q6H PRN BREAKTHROUGH AGITATION Ondansetron HCl 4 mg 08/26/24 18:18 Ondansetron Inj 2 Mg/Ml Inj 2 Ml IV 09/25/24 18:17 Q6H PRN NAUSEA OR VOMITING Protocol Oxycodone/Acetaminophen 1 tab 08/26/24 18:18 08/28/24 03:39 Oxycodone/Apap 5/325 Tablet PO 08/31/24 18:17 1 tab Q6H PRN Administration PAIN SCALE 4-6 (Moderate Pantoprazole Sodium 40 mg 08/26/24 18:30 08/28/24 08:12 Pantoprazole Inj 40 Mg Vial IVP 09/25/24 18:29 40 mg QDAY DEANNA Administration Sennosides 1 tab 08/26/24 18:18 Senna Tablet PO 09/25/24 18:17 QDAY PRN constipation Protocol Thiamine HCl 100 mg 08/26/24 21:00 08/28/24 08:13 Thiamine 100 Mg Tablet PO 08/31/24 20:59 100 mg BID DEANNA Administration Plan This is a 53-year-old male with no PMHx, admitted for severe alcohol intoxication, SVT s/p cardioversion, troponinemia, suicidal attempt. On CIWA, scheduled ATIVAN, and suicidal precaution. CIWA 6 improving. Cardiology following, ECHO showed stage I diastolic dysfunction, EF 50-55%. TSH returned at 30.2, free T4.48 Appreciate cardiology recommendations. # Acute encephalopathy /: # Alcohol intoxication # Alcohol dependency disorder Admits to a month-long of binge drinking, 2 bottles of whiskey daily CIWA initially >17, proving currently CIWA 6, continued on CIWA and scheduled ATIVAN Previously asked to AMA, improved with LORAZEPAM plus DIAZEPAM x 1 S/P Banana bag and IV fluids ? Started banana bag ? CIWA protocol ? Continue LORAZEPAM 4 mg PO q.4h. scheduled ? Seizure precaution ? Physical therapy ? medical and health services manager # SVT, s/p cardioversion # Acute troponinemia, likely type II NSTEMI ? resolved # Tachycardia # Stage I diastolic dysfunction, EF 50-55% SVT likely 2/2 alcohol withdrawal, s/p cardioversion in ED. Peak troponin 0.231, likely demand ischemia Cardiology following, echo showed stage I diastolic dysfunction, EF 50-55% HR in the 100s, otherwise asymptomatic ? Continue telemetry ? Added METOPROLOL 50 mg daily # Suicidal ideation, with suicidal attempt # Depression Denies previous psych diagnosis or alcohol use. States he quit his job and has been drinking excessively since he was diagnosed with elevated PSA, father of prostate cancer. Attempted strangulated himself but failed. Currently denies SI or HI, also confirmed by social sciences instructor. Pending formal suicide intervention. ? Pending suicide intervention recommendations ? Suicidal precautions # Hypothyroidism History of hypothyroidism, likely contributing to SVT TSH 30.2, free T4.48 ? Resumed home LEVOTHYROXINE 175 mcg QD ? Recommended follow-up with PCP for referral to endocrinology # Acute transaminitis (improving) Admission AST 192, ALT 120, consistent with alcoholic hepatitis pattern History of alcohol abuse, No history of liver disease Denies abdominal pain, patient no jaundice, no scleral icterus Anticipate improvement with current management No signs of active bleed, coag panel within normal limits ? Daily CBC and CMP Health maintenance Diet: NPO GI prophylaxis: PROTONIX DVT prophylaxis: HEPARIN Antibiotics: Not indicated CODE STATUS: Full code Disposition: Pending social service evaluation and controlling withdrawal symptoms Patient case was discussed with attending, Santos Fuller MD and senior residents Dr. Majano and Dr. Weir. Lindsey Rasmussen, PGYI L Mr Coates is a 53-year-old male with history of depression who presented with a chief complaint of alcohol withdrawal, suicidal ideation and altered mental status. He was found to have SVT in the setting of alcohol intoxication, in addition to transaminitis, and troponinemia likely type II NSTEMI. Patient received IV adenosine in the ED, after which HR normalized to 80-90bpm sinus rhythm. Cardiology is consulted, appreciate recommendations to start beta faye. For the acute encephalopathy, which was likely in the setting of alcohol intoxication, supportive care with IV fluids ordered, along with banana bag x1 and daily FA and Thiamaine supplementation, mentation improving. As per social sciences instructor, patient is not at suicide risk, but does have a history of untreated depression. He is on 179 hold with suicidal precautions for now until crisis evalaution. Patient to continue on CIWA protocol with scheduled ativan for now until symptoms resolve. We will continue to monitor closely. Will start mirabegron if urinary incontinence persists. Patient examined and case discussed with the team including attending physician. Note reviewed, I agree with the care plan as documented. - Herman Weir MD, PGY 2 Attending Provider Attestation/Addendum I reviewed labs, imaging, EKG, home medications and prior available records. Face to face evaluation was performed by me. I have personally examined the patient and discussed assessment and plan with the IM team. I reviewed the resident note and agree with the plan with exceptions as below. 53-year-old male with history of depression who presented with a chief complaint of suicidal ideation and altered mental status. He was found to have SVT in the setting of alcohol intoxication, in addition to transaminitis, and non-STEMI. SVT: Presented on admission. Status post IV adenosine. Heart rate was WNL at the time of my evaluation. Likely in the setting of alcohol intoxication. Continue management as below. Consulted cardiology: Recommended starting metoprolol 25 mg XL. Sent TSH/free T4 that showed elevated T4: Resumed home levothyroxine. Acute encephalopathy: Likely in the setting of alcohol intoxication. Supportive care with IV fluids. Start thiamine and folic acid. Monitor LFTs. Suicidal ideation: In the setting of history of untreated depression. Patient later denied any suicidal ideation or attempt however he does not have the capacity to leave AGAINST MEDICAL ADVICE as he is being treated for alcohol withdrawal and is delirious. Discussed with social work job titles and risk-management. Alcohol intoxication: Reported as intentional suicide attempt. Supportive care as above. Elevated troponin: Likely type II non-STEMI in the setting of SVT and alcohol intoxication. Management as above. Continue telemetry. Consulted cardiology. Thrombocytopenia: Mild. No signs of active bleeding. Monitor platelet level.
[2024-08-28] MEDS: METOPROLOL SUCCINATE XL 25 MG TABCR 50 MG PO (15:06)
[2024-08-29] VITALS (9 sets, daily range): BP systolic 92–146; BP diastolic 63–104; PULSE 68–90; RESP 18–98; TEMP 36.1–36.9; O2SAT 94–99
[2024-08-29] MEDS: LORazepam 2 MG/ML VIAL IVP ×2 (00:19→04:48)
--- NOTE | 2024-08-29 00:55 | PC.NURSE ---
Called MD Reese to clarify ativan orders for patient. He is scheduled q4H 2mg ativan IVP and he also has PRN orders for Ativan based on CIWA scores. confirmed to give just the scheduled ativan when we do the alcohol withdrawal assessment and not give at the same time as the PRN.
[2024-08-29] MEDS: ACETAMINOPHEN 325 MG TABLET 650 MG PO (01:49)
--- NOTE | 2024-08-29 04:33 | PC.NURSE ---
MD Ryan notified that pt's CIWA score is a 2 at 0400. He has 2 mg IVP ativan ordered but he is only having mild alcohol withdrawal symptoms at this time. said she will review chart
--- NOTE | 2024-08-29 04:43 | PC.NURSE ---
MD Ryan said ok to only give the scheduled 2mg Ativan but not the PRN ativan. She will clarify with day team about the current orders
[2024-08-29 05:42] LABS: Basophils % (Auto) 1 % (0-2.5); Eosinophils # (Auto) 0.2 Thou/mm3 (0.0-0.5); Eosinophils % (Auto) 4 % (0-10); Hematocrit 36.7 % (41.0-53.0); Hemoglobin 12.8 g/dL (13.5-16.0); Immature Granulocytes % (Auto) 0 % (0-0); Immature Granulocytes Auto 0.02 Thou/mm3 (0.00-0.00); Lymphocytes # (Auto) 1.2 Thou/mm3 (1.0-4.8); Lymphocytes % (Auto) 24 % (10-50); Mean Corpuscular HGB Conc 34.9 g/dl (31.0-37.0); Mean Corpuscular Hemoglobin 32.4 pg (25.0-35.0); Mean Corpuscular Volume 93 fL (80-100); Monocytes # (Auto) 0.4 Thou/mm3 (0.0-0.8); Monocytes % (Auto) 8 % (0-12); Neutrophils # (Auto) 3.1 Thou/mm3 (1.8-7.7); Neutrophils % (Auto) 63 % (37-80); Nucleated Red Blood Cell % 0 /100 WBC (0); Platelet Count 80 Thou/mm3 (140-440); RDW Standard Deviation 43.4 fL (35.1-43.9); Red Blood Count 3.95 Miln/mm3 (4.50-5.90); White Blood Count 4.8 Thou/mm3 (3.8-10.6)
[2024-08-29 06:12] LABS: Alanine Aminotransferase 106 U/L (10-49); Albumin, Serum 3.3 gm/dL (3.5-5.0); Albumin/Globulin Ratio 1.4 (1.2-2.2); Alkaline Phosphatase 95 U/L (46-116); Anion Gap 6 (7-16); Aspartate Amino Transferase 161 U/L (0-34); BUN/Creatinine Ratio 13 Ratio (12-20); Bilirubin,Total 0.8 mg/dL (0.3-1.2); Blood Urea Nitrogen 10 mg/dL (9-23); Calcium 8.4 mg/dL (8.3-10.6); Carbon Dioxide 25.9 mMol/L (20.0-31.0); Chloride 101 mMol/L (98-107); Creatinine (Component) 0.8 mg/dL (0.6-1.3); Estimated Creatinine Clearance 106.1 mL/min (>60); Globulin 2.3 gm/dL (2.3-3.5); Glucose 93 mg/dL (74-106); Osmolality,Calculated 265 (275-295); Phosphorous 2.4 mg/dL (2.4-5.1); Potassium 3.9 mMol/L (3.4-5.1); Sodium 133 mMol/L (136-145); Total Protein 5.6 gm/dL (5.7-8.2); eGFR > 60 See Note
[2024-08-29] MEDS: LEVOTHYROXINE SODIUM 125 MCG, LEVOTHYROXINE SODIUM 50 MCG 175 MCG PO (06:17)
--- NOTE | 2024-08-29 08:11 | ESPR_ITS ---
Documentation for date of: 08/29/24 Subjective Subjective Interval history: No acute overnight events. Overall withdrawal symptoms improving without reported hallucination, agitation or tremors. Denies fever, chills, headaches, chest pain, sob, cough, GI or urinary symptoms. Exam Vital Signs Temp Pulse Resp BP Pulse Ox O2 Del Method O2 Flow Rate 97.2 F 79 20 127/83 97 Room Air 8 08/29/24 04:00 08/29/24 04:00 08/29/24 04:00 08/29/24 04:00 08/29/24 04:00 08/28/24 15:02 08/26/24 16:49 Narrative Exam GENERAL: Disheveled appearing male, appears in mild distress HEENT: NCAT.?LUIS. Oral mucosa is moist. Patent Nares NECK: Supple, nontender, no thyromegaly, no meningismus, no JVD, no step offs CHEST: Symmetrical, atraumatic, and with equal expansion, Nontender on palpation no deformity and no crepitus. CARDIOVASCULAR: RRR, no m/g/r LUNGS: CTAB, no w/r/r. Symmetrical chest rise. No intercostal subcostal retraction. ABDOMEN: Soft, flat, nontender. No guarding/rebound tenderness/masses. +BS EXTREMITIES: Nontender.? No edema/cyanosis.?Moves all 4 extremities well, with full ROM and good CSM. SKIN: Cool skin, dry, flushed and sweaty skin, no jaundice/rashes. No scleral icterus MSK: No lumbar or midline, no CVA, no paraspinal muscle spasm or tenderness. NEURO: Mild delayed reaction, muscle movement. Minor tremors on exam bilaterally. SALAZAR x4, CN II-XII grossly intact.?No focal neurologic deficits. PSYCHIATRIC: Depressed mood and affect, cooperative, denies SI or HI Objective Labs 08/30/24 04:37 08/30/24 04:37 Labs: Laboratory Results - last 24 hr 08/28/24 08/29/24 05:20 04:59 WBC 4.8 RBC 3.95 L Hgb 12.8 L Hct 36.7 L MCV 93 MCH 32.4 MCHC 34.9 RDW Std Deviation 43.4 Plt Count 80 L Neut % (Auto) 63 Lymph % (Auto) 24 [place] % (Auto) 8 Eos % (Auto) 4 Baso % (Auto) 1 Neut # (Auto) 3.1 Lymph # (Auto) 1.2 [place] # (Auto) 0.4 Eos # (Auto) 0.2 Baso # (Auto) 0.0 Immature Gran # (Auto) 0.02 H Absolute Nucleated RBC 0.00 Immature Gran % 0 Nucleated RBC % 0 Sodium 133 L Potassium 3.9 Chloride 101 Carbon Dioxide 25.9 Anion Gap 6 L BUN 10 Creatinine 0.8 Estim Creat Clear Calc 106.1 eGFR > 60 BUN/Creatinine Ratio 13 Glucose 93 Calculated Osmolality 265 L Calcium 8.4 Corrected Calcium 9.0 Phosphorus 2.4 Magnesium 2.0 Total Bilirubin 0.8 AST 161 H ALT 106 H Alkaline Phosphatase 95 Total Protein 5.6 L Albumin 3.3 L Globulin 2.3 Albumin/Globulin Ratio 1.4 TSH 30.42 H Free T4 0.48 L Quality Measures Quality Measures none Assessment & Plan Assessment Current Active Medications: Generic Name Dose Route Start Last Admin Trade Name Freq PRN Reason Stop Dose Admin Acetaminophen 650 mg 08/26/24 18:18 Acetaminophen 325 Mg Tablet PO 09/25/24 18:17 Q6H PRN Fever >100.4 Acetaminophen 650 mg 08/26/24 18:18 08/29/24 01:49 Acetaminophen 325 Mg Tablet PO 09/25/24 18:17 650 mg Q6H PRN Administration PAIN SCALE 1-3 (mild Folic Acid 1 mg 08/26/24 21:00 08/28/24 20:44 Folic Acid 1 Mg Tablet PO 08/31/24 20:59 1 mg BID DEANNA Administration Heparin Sodium (Porcine) 5,000 unit 08/26/24 22:00 08/29/24 06:11 Heparin Sod Inj 5000 Unit/Ml Vial SC 09/09/24 21:59 Not Given Q8HR DEANNA Levothyroxine Sodium 125 mcg/ 175 mcg 08/29/24 06:00 08/29/24 06:17 Levothyroxine Sodium 50 mcg PO 09/28/24 05:59 175 mcg ACBR DEANNA Administration Lorazepam 0.5 mg 08/26/24 19:01 Lorazepam 2 Mg/Ml Vial IVP 08/31/24 19:00 Q4H PRN CIWA 2-6 Lorazepam 1 mg 08/27/24 06:01 08/27/24 21:32 Lorazepam 2 Mg/Ml Vial IV 08/31/24 18:17 1 mg Q2HR PRN Administration CIWA SCORE 7-11 Lorazepam 2 mg 08/27/24 06:01 08/28/24 05:10 Lorazepam 2 Mg/Ml Vial IVP 08/31/24 18:17 2 mg Q1HR PRN Administration CIWA 12-16 Lorazepam 2 mg 08/27/24 16:00 08/29/24 04:48 Lorazepam 2 Mg/Ml Vial IVP 09/01/24 15:59 2 mg Q4H DEANNA Administration Lorazepam 2 mg 08/27/24 14:33 Lorazepam 0.5 Mg Tablet PO 09/01/24 14:32 Q6H PRN BREAKTHROUGH AGITATION Metoprolol Succinate 50 mg 08/28/24 13:00 08/28/24 15:06 Metoprolol Succinate Xl 25 Mg Tabcr PO 09/27/24 12:59 50 mg QDAY DEANNA Administration Ondansetron HCl 4 mg 08/26/24 18:18 Ondansetron Inj 2 Mg/Ml Inj 2 Ml IV 09/25/24 18:17 Q6H PRN NAUSEA OR VOMITING Protocol Oxycodone/Acetaminophen 1 tab 08/26/24 18:18 08/28/24 03:39 Oxycodone/Apap 5/325 Tablet PO 08/31/24 18:17 1 tab Q6H PRN Administration PAIN SCALE 4-6 (Moderate Pantoprazole Sodium 40 mg 08/26/24 18:30 08/28/24 08:12 Pantoprazole Inj 40 Mg Vial IVP 09/25/24 18:29 40 mg QDAY DEANNA Administration Sennosides 1 tab 08/26/24 18:18 Senna Tablet PO 09/25/24 18:17 QDAY PRN constipation Protocol Thiamine HCl 100 mg 08/26/24 21:00 08/28/24 20:44 Thiamine 100 Mg Tablet PO 08/31/24 20:59 100 mg BID DEANNA Administration Plan This is a 53-year-old male with no PMHx, admitted for severe alcohol intoxication, SVT s/p cardioversion, troponinemia, suicidal attempt. On CIWA and suicidal precaution. CIWA 4 improving. Cardiology following, ECHO showed stage I diastolic dysfunction, EF 50-55%. TSH returned at 30.2, free T4.48, continued on LEVOTHYROXINE. Started DULOXETINE for depression. Appreciate cardiology recommendations. # Acute encephalopathy /: # Alcohol intoxication # Alcohol dependency disorder Admits to a month-long of binge drinking, 2 bottles of whiskey daily CIWA initially >17, proving currently CIWA 4, continued on CIWA and scheduled ATIVAN Previously asked to AMA, improved with LORAZEPAM plus DIAZEPAM x 1 S/P Banana bag and IV fluids ? Started banana bag ? CIWA protocol ? Seizure precaution ? Physical therapy ? medical services coordinator # SVT, s/p cardioversion # Acute troponinemia, likely type II NSTEMI ? resolved # Tachycardia # Stage I diastolic dysfunction, EF 50-55% SVT likely 2/2 alcohol withdrawal, s/p cardioversion in ED. Peak troponin 0.231, likely demand ischemia Cardiology following, echo showed stage I diastolic dysfunction, EF 50-55% HR in the 100s, otherwise asymptomatic ? Continue telemetry ? METOPROLOL 50 mg daily # Suicidal ideation, with suicidal attempt # Depression Denies previous psych diagnosis or alcohol use. States he quit his job and has been drinking excessively since he was diagnosed with elevated PSA, father of prostate cancer. Attempted strangulated himself but failed. Currently denies SI or HI, also confirmed by social sciences professor. Pending formal suicide intervention. ? Pending suicide intervention recommendations ? Suicidal precautions ? Started DULOXETINE 30 mg BID # Hypothyroidism History of hypothyroidism, likely contributing to SVT TSH 30.2, free T4.48 ? Resumed home LEVOTHYROXINE 175 mcg QD ? Recommended follow-up with PCP for referral to endocrinology # Overactive bladder Complains of increased frequency urination ? Started OXYBUTYNIN daily ? Follow-up with PCP outpatient # Tinea corporis ? Started topical KETOCONAZOLE BID # Acute transaminitis (stable) Admission AST 192, ALT 120, consistent with alcoholic hepatitis pattern History of alcohol abuse, No history of liver disease Denies abdominal pain, patient no jaundice, no scleral icterus Anticipate improvement with current management No signs of active bleed, coag panel within normal limits ? Daily CBC and CMP Health maintenance Diet: NPO GI prophylaxis: PROTONIX DVT prophylaxis: HEPARIN Antibiotics: Not indicated CODE STATUS: Full code Disposition: Pending social service evaluation and controlling withdrawal symptoms Patient case was discussed with attending, Santos Fuller MD and senior residents Dr. Majano and Dr. Weir. Lindsey Rasmussen, DO PGYI Mr Coates is a 53-year-old male with history of depression who presented with a chief complaint of alcohol withdrawal, suicidal ideation and altered mental status. He was found to have SVT in the setting of alcohol intoxication, in addition to transaminitis, and troponinemia likely type II NSTEMI. Patient received IV adenosine in the ED, after which HR normalized to 80-90bpm sinus rhythm. Cardiology is consulted, appreciate recommendations, patient started on Metoprolol XL. As per social sciences professor, patient is not at suicide risk, but does have a history of untreated depression. He is on 1799 hold with suicidal precautions for now until crisis evalaution. Acute encephalopathy due to alcohol intoxication has improved, CIWA <5 over the last 24 hours. Will discontinue DEANNA Ativan, continue CIWA PRNs. Will continue daily B12/FA, Thiamine supplementation. Also started on Oxybutynin for the urinary incontinence. Anticipate discharge on the next 24 hours once cleared by crisis. Patient examined and case discussed with the team including attending physician. Note reviewed, I agree with the care plan as documented. - Herman Weir MD, PGY 2 Attending Provider Attestation/Addendum I reviewed labs, imaging, EKG, home medications and prior available records. Face to face evaluation was performed by me. I have personally examined the patient and discussed assessment and plan with the IM team. I reviewed the resident note and agree with the plan with exceptions as below. 53-year-old male with history of depression who presented with a chief complaint of suicidal ideation and altered mental status. He was found to have SVT in the setting of alcohol intoxication, in addition to transaminitis, and non-STEMI. SVT: Presented on admission. Status post IV adenosine. Heart rate was WNL at the time of my evaluation. Likely in the setting of alcohol intoxication. Continue management as below. Consulted cardiology: Recommended starting metoprolol 25 mg XL. Sent TSH/free T4 that showed elevated T4: Resumed home levothyroxine. Ordered echocardiogram that showed preserved EF with no pertinent valve abnormalities. Acute encephalopathy: Likely in the setting of alcohol intoxication. Supportive care with IV fluids. Start thiamine and folic acid. Monitor LFTs. Suicidal ideation: In the setting of history of untreated depression. Patient later denied any suicidal ideation or attempt however he does not have the capacity to leave AGAINST MEDICAL ADVICE as he is being treated for alcohol withdrawal and is delirious. Discussed with social and political studies professor and risk-management. Alcohol intoxication: Reported as intentional suicide attempt. Supportive care as above. Elevated troponin: Likely type II non-STEMI in the setting of SVT and alcohol intoxication. Management as above. Continue telemetry. Consulted cardiology. Thrombocytopenia: Mild. No signs of active bleeding. Monitor platelet level. Debility: Ordered PT evaluation.
[2024-08-29] MEDS: METOPROLOL SUCCINATE XL 25 MG TABCR 50 MG PO (08:24)
[2024-08-29] MEDS: LORazepam 2 MG/ML VIAL 1 MG IVP (08:24)
[2024-08-29] MEDS: PANTOPRAZOLE INJ 40 MG VIAL IVP (08:24)
[2024-08-29] MEDS: THIAMINE 100 MG TABLET PO ×2 (08:26→21:20)
[2024-08-29] MEDS: VIT B12/Vit C/FA (Nephrovite) TABLET 1 TAB PO (08:30)
[2024-08-29] MEDS: OXYBUTYNIN CHLOR 5 MG TABLET PO ×3 (11:52→21:20)
[2024-08-29] MEDS: LORazepam 0.5 MG TABLET 2 MG PO (11:52)
[2024-08-29] MEDS: LORazepam 2 MG/ML VIAL 0.5 MG IVP ×2 (18:06→22:40)
[2024-08-29] MEDS: ONDANSETRON INJ 2 MG/ML INJ 2 ML 4 MG IV (20:39)
[2024-08-29] MEDS: DULoxetine HCL 30 MG CAPSULE PO (21:20)
[2024-08-29] MEDS: KETOCONAZOLE CR 2% 15 GM TUBE TOP (21:21)
[2024-08-30] VITALS (8 sets, daily range): BP systolic 93–133; BP diastolic 60–83; PULSE 58–80; RESP 13–21; TEMP 36.1–36.7; O2SAT 94–98; BMI 28.5
[2024-08-30] MEDS: LORazepam 0.5 MG TABLET 2 MG PO (00:59)
[2024-08-30] MEDS: SENNA TABLET 1 TAB PO (00:59)
[2024-08-30] MEDS: ACETAMINOPHEN 325 MG TABLET 650 MG PO (03:25)
[2024-08-30] MEDS: LEVOTHYROXINE SODIUM 125 MCG, LEVOTHYROXINE SODIUM 50 MCG 175 MCG PO (05:25)
[2024-08-30 05:54] LABS: Basophils % (Auto) 1 % (0-2.5); Eosinophils # (Auto) 0.1 Thou/mm3 (0.0-0.5); Eosinophils % (Auto) 2 % (0-10); Hematocrit 38.4 % (41.0-53.0); Hemoglobin 13.2 g/dL (13.5-16.0); Immature Granulocytes % (Auto) 1 % (0-0); Immature Granulocytes Auto 0.03 Thou/mm3 (0.00-0.00); Lymphocytes # (Auto) 1.4 Thou/mm3 (1.0-4.8); Lymphocytes % (Auto) 25 % (10-50); Mean Corpuscular HGB Conc 34.4 g/dl (31.0-37.0); Mean Corpuscular Hemoglobin 32.4 pg (25.0-35.0); Mean Corpuscular Volume 94 fL (80-100); Monocytes # (Auto) 0.5 Thou/mm3 (0.0-0.8); Monocytes % (Auto) 9 % (0-12); Neutrophils # (Auto) 3.6 Thou/mm3 (1.8-7.7); Neutrophils % (Auto) 64 % (37-80); Nucleated Red Blood Cell % 0 /100 WBC (0); Platelet Count 99 Thou/mm3 (140-440); RDW Standard Deviation 44.3 fL (35.1-43.9); Red Blood Count 4.08 Miln/mm3 (4.50-5.90); White Blood Count 5.6 Thou/mm3 (3.8-10.6)
[2024-08-30 06:19] LABS: Alanine Aminotransferase 164 U/L (10-49); Albumin, Serum 3.3 gm/dL (3.5-5.0); Albumin/Globulin Ratio 1.3 (1.2-2.2); Alkaline Phosphatase 98 U/L (46-116); Anion Gap 6 (7-16); Aspartate Amino Transferase 220 U/L (0-34); BUN/Creatinine Ratio 9 Ratio (12-20); Bilirubin,Total 0.4 mg/dL (0.3-1.2); Blood Urea Nitrogen 8 mg/dL (9-23); Calcium 9.1 mg/dL (8.3-10.6); Calcium (Corrected) 9.7 mg/dL (8.5-10.1); Carbon Dioxide 25.7 mMol/L (20.0-31.0); Chloride 102 mMol/L (98-107); Creatinine (Component) 0.9 mg/dL (0.6-1.3); Estimated Creatinine Clearance 94.3 mL/min (>60); Globulin 2.6 gm/dL (2.3-3.5); Glucose 97 mg/dL (74-106); Magnesium 2.1 mg/dL (1.6-2.6); Osmolality,Calculated 266 (275-295); Phosphorous 3.1 mg/dL (2.4-5.1); Potassium 4.5 mMol/L (3.4-5.1); Sodium 134 mMol/L (136-145); Total Protein 5.9 gm/dL (5.7-8.2); eGFR > 60 See Note
[2024-08-30] MEDS: OXYBUTYNIN CHLOR 5 MG TABLET PO ×3 (06:23→16:16)
[2024-08-30] MEDS: DULoxetine HCL 30 MG CAPSULE PO (08:10)
[2024-08-30] MEDS: PANTOPRAZOLE INJ 40 MG VIAL IVP (08:10)
[2024-08-30] MEDS: VIT B12/Vit C/FA (Nephrovite) TABLET 1 TAB PO (08:10)
[2024-08-30] MEDS: METOPROLOL SUCCINATE XL 25 MG TABCR 50 MG PO (08:11)
[2024-08-30] MEDS: KETOCONAZOLE CR 2% 15 GM TUBE TOP (08:11)
[2024-08-30] MEDS: THIAMINE 100 MG TABLET PO (08:11)
--- NOTE | 2024-08-30 09:02 | PC.SS ---
Addendum entered by SAÚL Marquis 08/30/24 12:56: Spoke with attending Dr. Fuller, who informed patient has been medically cleared for mental health evaluation. Original Note: Was informed by oncology social work team that the patient will need a mental health evaluation prior to discharge due to SI statements. Contacted medical team and spoke with Dr. Rasmussen. Patient is pending medical clearance at this time.
[2024-08-30 13:16] LABS: Hepatitis A Antibody IgM Non Reactive (Non React); Hepatitis B Core Antibody IgM Non Reactive (Non React); Hepatitis B Surface Antigen Non Reactive (Non React); Hepatitis C Antibody Non Reactive (Non React)
--- NOTE | 2024-08-30 14:10 | PC.NURSE ---
transferred pt.to [id number] with all personal belongings.
--- NOTE | 2024-08-30 14:46 | ESPR_ITS ---
Documentation for date of: 08/30/24 Subjective Subjective Interval history: No acute overnight events. Overall improving, more awake, reports feeling better. Has mild headache but improved from previous days. Tolerating oral intake without nausea or vomiting. Urinary frequency improving. Denies fever, chills, headaches, chest pain, sob, cough, GI or urinary symptoms. Exam Vital Signs Temp Pulse Resp BP Pulse Ox O2 Del Method O2 Flow Rate 97.7 F 58 L 13 93/60 94 L Room Air 8 08/30/24 12:00 08/30/24 12:00 08/30/24 12:00 08/30/24 12:00 08/30/24 12:00 08/30/24 12:00 08/26/24 16:49 Narrative Exam GENERAL: normal appearing male, NAD, CIWA 4-5 HEENT: NCAT.?LUIS. Oral mucosa is moist. Patent Nares NECK: Supple, nontender, no thyromegaly, no meningismus, no JVD, no step offs CHEST: Symmetrical, atraumatic, and with equal expansion, Nontender on palpation no deformity and no crepitus. CARDIOVASCULAR: RRR, no m/g/r LUNGS: CTAB, no w/r/r. Symmetrical chest rise. No intercostal subcostal retraction. ABDOMEN: Soft, flat, nontender. No guarding/rebound tenderness/masses. +BS EXTREMITIES: Nontender.?No edema/cyanosis.?Moves all 4 extremities well, with full ROM and good CSM. SKIN: Cool skin, dry, flushed and sweaty skin, no jaundice/rashes. No scleral icterus MSK: No lumbar or midline, no CVA, no paraspinal muscle spasm or tenderness. NEURO: Mild delayed reaction, muscle movement. Minor tremors on exam bilaterally. SALAZAR x4, CN II-XII grossly intact.?No focal neurologic deficits. PSYCHIATRIC: Depressed mood and affect, cooperative, denies SI or HI Objective Labs 08/30/24 04:37 08/30/24 04:37 Labs: Laboratory Results - last 24 hr 08/30/24 08/30/24 04:37 11:15 WBC 5.6 RBC 4.08 L Hgb 13.2 L Hct 38.4 L MCV 94 MCH 32.4 MCHC 34.4 RDW Std Deviation 44.3 H Plt Count 99 L D Neut % (Auto) 64 Lymph % (Auto) 25 [place] % (Auto) 9 Eos % (Auto) 2 Baso % (Auto) 1 Neut # (Auto) 3.6 Lymph # (Auto) 1.4 [place] # (Auto) 0.5 Eos # (Auto) 0.1 Baso # (Auto) 0.0 Immature Gran # (Auto) 0.03 H Absolute Nucleated RBC 0.00 Immature Gran % 1 H Nucleated RBC % 0 Sodium 134 L Potassium 4.5 D Chloride 102 Carbon Dioxide 25.7 Anion Gap 6 L BUN 8 L Creatinine 0.9 Estim Creat Clear Calc 94.3 eGFR > 60 BUN/Creatinine Ratio 9 L Glucose 97 Calculated Osmolality 266 L Calcium 9.1 Corrected Calcium 9.7 Phosphorus 3.1 Magnesium 2.1 Total Bilirubin 0.4 AST 220 H ALT 164 H Alkaline Phosphatase 98 Total Protein 5.9 Albumin 3.3 L Globulin 2.6 Albumin/Globulin Ratio 1.3 Hepatitis A IgM Ab Non Reactive Hep Bs Antigen Non Reactive Hep B Core IgM Ab Non Reactive Hepatitis C Antibody Non Reactive Quality Measures Quality Measures none Assessment & Plan Assessment Current Active Medications: Generic Name Dose Route Start Last Admin Trade Name Freq PRN Reason Stop Dose Admin Acetaminophen 650 mg 08/26/24 18:18 Acetaminophen 325 Mg Tablet PO 09/25/24 18:17 Q6H PRN Fever >100.4 Acetaminophen 650 mg 08/26/24 18:18 08/30/24 03:25 Acetaminophen 325 Mg Tablet PO 09/25/24 18:17 650 mg Q6H PRN Administration PAIN SCALE 1-3 (mild Duloxetine HCl 30 mg 08/29/24 21:00 08/30/24 08:10 Duloxetine Hcl 30 Mg Capsule PO 09/28/24 20:59 30 mg BID DEANNA Administration Ketoconazole 0 gm 08/29/24 21:00 08/30/24 08:11 Ketoconazole Cr 2% 15 Gm Tube TOP 09/28/24 20:59 1 applicatio BID DEANNA Administration Levothyroxine Sodium 125 mcg/ 175 mcg 08/29/24 06:00 08/30/24 05:25 Levothyroxine Sodium 50 mcg PO 09/28/24 05:59 175 mcg ACBR DEANNA Administration Lorazepam 0.5 mg 08/26/24 19:01 08/29/24 22:40 Lorazepam 2 Mg/Ml Vial IVP 08/31/24 19:00 0.5 mg Q4H PRN Administration CIWA 2-6 Lorazepam 1 mg 08/27/24 06:01 08/27/24 21:32 Lorazepam 2 Mg/Ml Vial IV 08/31/24 18:17 1 mg Q2HR PRN Administration CIWA SCORE 7-11 Lorazepam 2 mg 08/27/24 06:01 08/28/24 05:10 Lorazepam 2 Mg/Ml Vial IVP 08/31/24 18:17 2 mg Q1HR PRN Administration CIWA 12-16 Lorazepam 2 mg 08/27/24 14:33 08/30/24 00:59 Lorazepam 0.5 Mg Tablet PO 09/01/24 14:32 2 mg Q6H PRN Administration BREAKTHROUGH AGITATION Lorazepam 0.5 mg 08/30/24 09:15 08/30/24 12:46 Lorazepam 2 Mg/Ml Vial IVP 09/04/24 09:14 Not Given Q6H DEANNA Metoprolol Succinate 50 mg 08/28/24 13:00 08/30/24 08:11 Metoprolol Succinate Xl 25 Mg Tabcr PO 09/27/24 12:59 50 mg QDAY DEANNA Administration Ondansetron HCl 4 mg 08/26/24 18:18 08/29/24 20:39 Ondansetron Inj 2 Mg/Ml Inj 2 Ml IV 09/25/24 18:17 4 mg Q6H PRN Administration NAUSEA OR VOMITING Protocol Oxybutynin Chloride 5 mg 08/29/24 12:00 08/30/24 12:47 Oxybutynin Chlor 5 Mg Tablet PO 09/28/24 11:59 5 mg QID DEANNA Administration Pantoprazole Sodium 40 mg 08/26/24 18:30 08/30/24 08:10 Pantoprazole Inj 40 Mg Vial IVP 09/25/24 18:29 40 mg QDAY DEANNA Administration Sennosides 1 tab 08/26/24 18:18 08/30/24 00:59 Senna Tablet PO 09/25/24 18:17 1 tab QDAY PRN Administration constipation Protocol Thiamine HCl 100 mg 08/26/24 21:00 08/30/24 08:11 Thiamine 100 Mg Tablet PO 08/31/24 20:59 100 mg BID DEANNA Administration Vitamin B Complex/Vit C/Folic Acid 1 tab 08/29/24 09:00 08/30/24 08:10 Vit B12/Vit C/Fa (Nephrovite) Tablet PO 09/28/24 08:59 1 tab QDAY DEANNA Administration Plan This is a 53-year-old male with no PMHx, admitted for severe alcohol intoxication, SVT s/p cardioversion, troponinemia, suicidal attempt. On CIWA and suicidal precaution. CIWA 4-5 stable. Cardiology following, ECHO showed stage I diastolic dysfunction, EF 50-55%. TSH returned at 30.2, free T4.48, continued on LEVOTHYROXINE. Started DULOXETINE for depression. Pending evaluation and recommendation from crisis preventions. Appreciate cardiology recommendations. # Acute encephalopathy 2/2: # Alcohol intoxication # Alcohol dependency disorder Admits to a month-long of binge drinking, 2 bottles of whiskey daily CIWA initially >17, proving currently CIWA 4, continued on CIWA and scheduled ATIVAN Previously asked to AMA, improved with LORAZEPAM plus DIAZEPAM x 1 S/P Banana bag and IV fluids ? Started banana bag ? CIWA protocol ? Continue ATIVAN 0.5 mg Q6H DEANNA ? Seizure precaution ? Physical therapy ? visitor services information assistant # SVT, s/p cardioversion # Acute troponinemia, likely type II NSTEMI ? resolved # Tachycardia (resolved) # Stage I diastolic dysfunction, EF 50-55% SVT likely 2/2 alcohol withdrawal, s/p cardioversion in ED. Peak troponin 0.231, likely demand ischemia Cardiology following, echo showed stage I diastolic dysfunction, EF 50-55% ? Continue telemetry ? METOPROLOL 50 mg daily # Suicidal ideation, with suicidal attempt # Depression Denies previous psych diagnosis or alcohol use. States he quit his job and has been drinking excessively since he was diagnosed with elevated PSA, father of prostate cancer. Attempted strangulated himself but failed. Currently denies SI or HI, also confirmed by family welfare social work professor. Pending formal suicide intervention. ? Pending suicide intervention recommendations ? Suicidal precautions ? Started DULOXETINE 30 mg BID # Hypothyroidism History of hypothyroidism, likely contributing to SVT TSH 30.2, free T4.48 ? Resumed home LEVOTHYROXINE 175 mcg QD ? Recommended follow-up with PCP for referral to endocrinology # Overactive bladder Complains of increased frequency urination ? Started OXYBUTYNIN daily ? Follow-up with PCP outpatient # Tinea corporis ? Started topical KETOCONAZOLE BID # Acute transaminitis (stable) Admission AST 192, ALT 120, consistent with alcoholic hepatitis pattern History of alcohol abuse, No history of liver disease Denies abdominal pain, patient no jaundice, no scleral icterus Anticipate improvement with current management No signs of active bleed, coag panel within normal limits ? Daily CBC and CMP Health maintenance Diet: NPO GI prophylaxis: PROTONIX DVT prophylaxis: HEPARIN Antibiotics: Not indicated CODE STATUS: Full code Disposition: Pending social service evaluation and controlling withdrawal symptoms Patient case was discussed with attending, Santos Fuller MD and senior residents Dr. Maajno and Dr. Weir. Lindsey Rasmussen DO PGYI Attending Provider Attestation/Addendum I reviewed labs, imaging, EKG, home medications and prior available records. Face to face evaluation was performed by me. I have personally examined the patient and discussed assessment and plan with the IM team. I reviewed the resident note and agree with the plan with exceptions as below. 53-year-old male with history of depression who presented with a chief complaint of suicidal ideation and altered mental status. He was found to have SVT in the setting of alcohol intoxication, in addition to transaminitis, and non-STEMI. SVT: Presented on admission. Status post IV adenosine. Heart rate was WNL at the time of my evaluation. Likely in the setting of alcohol intoxication. Continue management as below. Consulted cardiology: Recommended starting metoprolol 25 mg XL. Sent TSH/free T4 that showed elevated T4: Resumed home levothyroxine. Ordered echocardiogram that showed preserved EF with no pertinent valve abnormalities. Acute encephalopathy: Likely in the setting of alcohol intoxication. Supportive care with IV fluids. Start thiamine and folic acid. Monitor LFTs. Suicidal ideation: In the setting of history of untreated depression. Patient later denied any suicidal ideation or attempt however he does not have the capacity to leave AGAINST MEDICAL ADVICE as he is being treated for alcohol withdrawal and is delirious. Discussed with family welfare social work professor and risk-management. Alcohol intoxication: Reported as intentional suicide attempt. Supportive care as above. Elevated troponin: Likely type II non-STEMI in the setting of SVT and alcohol intoxication. Management as above. Continue telemetry. Consulted cardiology. Thrombocytopenia: Mild. No signs of active bleeding. Monitor platelet level. Debility: Ordered PT evaluation. Patient was unable to participate well. Continue management of alcohol withdrawal. Follow-up with PT for repeat evaluation.
--- NOTE | 2024-08-30 16:06 | PC.SS ---
Patient is a 53-year-old male admitted for alcohol withdrawal. Medical team has requested for a mental health evaluation as patient was brought in on 08/26/24 with statements regarding Suicidal Ideation. Attending Dr. Fuller has informed the patient has been medically cleared for a mental health evaluation. Alonzo met with patient [id number] to complete assessment. Present was [employer] student, Aixa Parish. ASW introduced self, role, and reason for assessment. ASW disclosed limits of confidentiality to the patient. Patient appeared alert and oriented to self, place, and situation. During this encounter, the patient was pleasant and cooperative. Patient made appropriate eye contact throughout the assessment. The patient reports he presented to the ED on 08/26/24 due to alcohol withdrawal. During this encounter, the patient made suicidal statement that he wanted to strangle himself. Patient reports that he did not truly mean what he said. Patient informs ?I did not mean it in a real way?. Patient clarified that he did not have a plan or intent to truly harm himself. Patient informs ?I was intoxicated?. Patient stated ?I want to live a good life?. Patient denies previous mental health history and diagnosis. Patient denies taking psychotropic medication. Patient denies previous psychiatric hospitalizations. Patient reports he has a history of alcohol use. Patient informs he was sober for one year and recently relapsed due to possibility that he may have cancer as he was informed his PSA level was elevated during medical appointment. Patient informed following that information for the next 14 days he consumed 6-12 beers a day as a form of relapse. Patient informs he has a history with inpatient substance use program named [facility] where he was there for 10 days and then discharged. Patient informs he was also connected to community AA meetings for support. Today, the patient is currently denying Suicidal Ideation and Homicidal Ideation. Patient denies having Visual Hallucinations and Audio Hallucinations. Patient reported he is feeling better today. Patient was asked if he were to go home today what he would do and patient stated ?I would go to my house and shower and buy a zim card for my phone?. Patient denied any intention to harm self if he were to return home. Patient reports being independent with everyday living activities. Patient denies medical equipment used at home. Patient informs he has employment and needs to follow up with this employer on current status. Patient informs he has access to skilled nursing and basic necessities. Patient reports following up with telehealth for primary care for thyroid medication. Patient denies taking any medication at this time. ASW discussed safety planning with patient to which the patient was open to. Patient gave consent to speak with his brother. ASW spoke with patient?s brother, Jose Angel Coates to discuss safety planning to provide patient with additional support following hospital discharge. Jose Angel informed he lives out of state in [place] however was agreeable with ensuring contact and support is provided to the patient. Jose Angel was made aware of appointments scheduled for the patient for outpatient follow up. Upon clinical consultation with [facility], Yara Parra patient does not meet criteria for 5150-hold. Safety plan includes of the patient discharged back home with his mother, Zenia providing extra support for the next 72 hours. Patient was scheduled for follow up appointment with primary care with [facility] Dr. Gera Resendiz on 09/01/24 at 8:45am. Patient was scheduled for follow up with mental health services with [facility] with provider Rae Redmond on 08/31/24 at 8am. Patient was provided with appointment information along with community resources and contact number for warm line and crisis information. Patient was explained of the importance to follow up with primary care and mental health services. Patient cleared to discharge with safety plan.
--- NOTE | 2024-08-30 16:08 | PC.SS ---
SS submitted inquiry through [employer] for a FWW.
--- NOTE | 2024-08-30 16:09 | ESDS_ITS ---
Planned Discharge Date 08/30/24 DS: Providers Provider Date of admission: 08/26/24 18:20 Primary care physician: Physician No Primary/Family Admitting Provider: Santos Fuller MD Attending Provider on Admission: Santos Fuller MD Consults: 08/26/24 18:25 Consult to Cardiology Stat Comment: SVT, alcohol w/d Consulting Provider: Priyank Kim 08/26/24 18:27 Referral Physical Therapy Stat Comment: Physician Instructions: Attending Provider on DC: Santos Fuller MD Discharging Provider: Santos Fuller MD DS: Diagnosis Problem List Completed Was Problem List Reviewed/Reconciled?: Yes Hospital Course Hospital Course Hospital course: This is a 53-year-old male with no PMHx, admitted for severe alcohol intoxication, SVT s/p cardioversion, troponinemia, and failed suicidal attempt. The patient met criteria for 5150 hold. Patient started on CIWA protocol, control symptoms improved at the time of discharge, without signs or symptoms of hallucination, tremor, agitation, seizures, headaches, nausea or vomiting. Elevated troponin likely secondary to demand ischemia resolved. Echocardiogram showed stage I diastolic dysfunction, EF 50-55%. History of hypothyroidism, TSH 30.2, free T4 0.48, patient resumed on home dose of LEVOTHYROXINE, she states he was not taking. At the time of discharge, 5150 hold has been discontinued after evaluation with social services manager. Patient denies Suicidal Ideation and/or Homicidal Ideation. The patient also denies experiencing Visual or Auditory Hallucinations. They reported feeling better today. When asked what they would do if discharged, the patient responded, ?I would go to my house and shower and buy a [employer] card for my phone.? The patient also denied any intention to harm themselves if discharged. Patient started on DULOXETINE as below. Patient deemed stable for discharge to home. PATIENT INSTRUCTIONS: Follow-up with PCP within 1 week of discharge Advised to follow-up with mental health services Return to Emergency Room if symptoms persist, worsen, or new symptoms develop Continue taking medications as prescribed below: ? LEVOTHYROXINE 175 mcg daily ? Vitamin R44-twvvt acid 500-400 mcg tablet ? DULOXETINE 30 mg twice daily ? METOPROLOL XL 50 mg once daily Additional Instructions: Please avoid drinking alcohol, as it can worsen your mood and increase the risk of suicidal thoughts. Stay connected with family, friends, or a therapist for support, and make sure to attend all therapy sessions. If you experience suicidal thoughts, seek immediate help by calling a crisis hotline or going to the nearest emergency room. Work with your healthcare provider to create a safety plan and stay in regular contact to monitor your mental health and alcohol use. Avoid situations or people that may trigger alcohol consumption or suicidal thoughts. ADMISSION DIAGNOSES: Acute encephalopathy 2/2: Alcohol intoxication Alcohol dependency disorder SVT, s/p cardioversion Acute troponinemia, likely type II NSTEMI ? resolved Tachycardia (resolved) Stage I diastolic dysfunction, EF 50-55% Suicidal ideation, with suicidal attempt Depression Hypothyroidism Overactive bladder Tinea corporis Acute transaminitis (stable) Patient case was discussed with attending, Santos Fuller MD and senior residents Dr. Majano and Dr. Weir. Lindsey Rasmussen DO PGYI Time Spent with Patient Time attestation: Total time spent providing and/or coordinating discharge services: Exam Vital Signs Temp Pulse Resp BP Pulse Ox O2 Del Method O2 Flow Rate 97.7 F 58 L 13 93/60 94 L Room Air 8 08/30/24 12:00 08/30/24 12:00 08/30/24 12:00 08/30/24 12:00 08/30/24 12:00 08/30/24 12:00 08/26/24 16:49 Narrative Exam GENERAL: normal appearing male, NAD HEENT: NCAT.?LUIS. Oral mucosa is moist. Patent Nares NECK: Supple, nontender, no thyromegaly, no meningismus, no JVD, no step offs CHEST: Symmetrical, atraumatic, and with equal expansion, Nontender on palpation no deformity and no crepitus. CARDIOVASCULAR: RRR, no m/g/r LUNGS: CTAB, no w/r/r. Symmetrical chest rise. No intercostal subcostal retraction. ABDOMEN: Soft, flat, nontender. No guarding/rebound tenderness/masses. +BS EXTREMITIES: Nontender.?No edema/cyanosis.?Moves all 4 extremities well, with full ROM and good CSM. SKIN: Cool skin, dry, flushed and sweaty skin, no jaundice/rashes. No scleral icterus MSK: No lumbar or midline, no CVA, no paraspinal muscle spasm or tenderness. NEURO: SALAZAR x4, CN II-XII grossly intact.?No focal neurologic deficits. PSYCHIATRIC: Depressed mood and affect, cooperative, denies SI or HI Discharge Plan Plan Patient Disposition: HOME (Self Care) Patient condition on transfer: Stable Prescriptions/Referrals Prescriptions/Med Rec: New vitamin G67-wfbyv acid 500-400 mcg tablet 1 tab PO QDAY 30 Days Qty: 30 0RF Rx Instructions: administer with a meal duloxetine 30 mg capsule, delayed rel sprinkle 30 mg PO BID 30 Days Qty: 60 0RF metoprolol succinate 50 mg tablet extended release 24 hr 50 mg PO QDAY 30 Days Qty: 30 0RF Continued levothyroxine [Synthroid] 175 mcg Tablet 175 mcg PO QDAY Referrals: No Primary/Family,Physician [Primary Care Provider] - Patient/Caregiver Discharge Instructions Meds to Beds: Yes Discharge Activity: activity as tolerated and resume usual activities Other Discharge Activity Instructions:: Follow-up with PCP within 1 week of discharge Advised to follow-up with mental health services Return to Emergency Room if symptoms persist, worsen, or new symptoms develop Continue taking medications as prescribed below: ? LEVOTHYROXINE 175 mcg daily ? Vitamin G11-fiaty acid 500-400 mcg tablet ? DULOXETINE 30 mg twice daily ? METOPROLOL XL 50 mg once daily Patient was scheduled for follow up appointment with primary care with [facility] Dr. Gera Resendiz on 09/01/24 at 8:45am. Patient was scheduled for follow up with mental health services with [facility] with provider Rae Redmond on 08/31/24 at 8am. Education Materials: Alcohol and Older Adults, Finding the Right Rehab ..., Signs of Alcohol Addiction ..., Understanding Alcoholism, Alcoholism: Getting Help, Alcohol Withdrawal: What to Expect, Addiction: Getting Help Print Language: Iranian Stand Alone Forms: Renetta Award Info., Patient Portal Info Letter Discharge Order Discharge Orders: Discharge (Routine); Ordered 08/30/24 Ordered By: Herman Weir Quality Discharge Quality Measures VTE prophylaxis Attestestation Attestation I reviewed labs, imaging, EKG, home medications and prior available records. Face to face evaluation was performed by me. I have personally examined the patient and discussed assessment and plan with the IM team. I reviewed the resident note and agree with the plan with exceptions as below. 53-year-old male with history of depression who presented with a chief complaint of suicidal ideation and altered mental status. He was found to have SVT in the setting of alcohol intoxication, in addition to transaminitis, and non-STEMI. SVT: Presented on admission. Status post IV adenosine. Heart rate was WNL at the time of my evaluation. Likely in the setting of alcohol intoxication. Continue management as below. Consulted cardiology: Recommended starting metoprolol 25 mg XL. Sent TSH/free T4 that showed elevated T4: Resumed home levothyroxine. Ordered echocardiogram that showed preserved EF with no pertinent valve abnormalities. Acute encephalopathy: Likely in the setting of alcohol intoxication. Supportive care with IV fluids. Start thiamine and folic acid. Monitor LFTs. Suicidal ideation: In the setting of history of untreated depression. He was evaluated by the crisis team who cleared him for discharge. He mentioned that he made his story about his suicidal thoughts in order to gain attention and treatment. Alcohol intoxication: Counseled the patient regarding importance of alcohol cessation. Elevated troponin: Likely type II non-STEMI in the setting of SVT and alcohol intoxication. Management as above. Continue telemetry. Consulted cardiology. Thrombocytopenia: Mild. No signs of active bleeding. Monitor platelet level. Debility: Ordered PT evaluation. Patient was unable to participate well. Continue management of alcohol withdrawal. Follow-up with PT for repeat evaluation. Time spent is 40 minutes. More than 50% of the time was spent on patient education and coordination of care.
[2024-08-30] MEDS: LORazepam 2 MG/ML VIAL 0.5 MG IVP (16:16)
--- NOTE | 2024-08-30 16:19 | PC.SS ---
SS update: DME to be delivered to the patient's residence. Patient is aware. Transportation to be provided by patient's landlordNataly . Provided bed side nurse Martha with contact information.
--- NOTE | 2024-08-30 19:05 | PC.NURSE ---
talked to Elieser camacho,stated still waiting for walker but he has a walker Addison can use for now.
== END 2024-08-30 18:45 | disposition home or self-care (01) | DRG 775 ==
LOC: SERX 16:42 → SERHOLD 19:12 → S2NX 22:53
PROVIDERS: Student in an Organized Health Care Education/Training Program; Admitting Provider Student in an Organized Health Care Education/Training Program; Emergency Provider Emergency Medicine; Visit Provider Student in an Organized Health Care Education/Training Program
DX: F10.229 Alcohol dependence with intoxication, unspecified (principal); R19.7 Diarrhea, unspecified; R35.89 Other polyuria; Y90.8 Blood alcohol level of 240 mg/100 ml or more; F32.A Depression, unspecified; G31.2 Degeneration of nervous system due to alcohol; F10.239 Alcohol dependence with withdrawal, unspecified; I47.10 Supraventricular tachycardia, unspecified; I21.A1 Myocardial infarction type 2; R45.851 Suicidal ideations; K70.10 Alcoholic hepatitis without ascites; E03.9 Hypothyroidism, unspecified; B35.4 Tinea corporis; N32.81 Overactive bladder; D69.6 Thrombocytopenia, unspecified
CPT/HCPCS: 36415; 71045; 80053; 80061; 80074; 80320; 83036; 83690; 83735; 83880; 84100; 84439; 84443; 84484; 85025; 85610; 85730; 92610; 93005; 93306; 96127; 96372; 96374; 96375; 97162; 99291; J0153; J1643; J2060; J2405; J2470; J3360; J3475; J3490; J7030; A9270; G0480; J1644

== ENCOUNTER 2024-09-04 21:44 | Emergency (ER) | payer MEDICAID, SELFPAY ==
[2024-09-04 21:44] VITALS: BP 146/96; PULSE 100; RESP 18; TEMP 36.7; O2SAT 97
[2024-09-04 21:46] VITALS: BMI 25.8
[2024-09-04 21:48] VITALS: PULSE 88; RESP 16; O2SAT 99
--- NOTE | 2024-09-04 22:38 | PC.NURSE ---
pt did not answer when name was called and was not found outside. Triage nurse Orlando stated he seen pt leave.
--- NOTE | 2024-09-04 22:42 | PC.NURSE ---
pt was found outside laying down across the street by security.
--- NOTE | 2024-09-04 23:12 | PD.EDRME ---
Rapid Medical Screening Exam RME Arrival date/time: 09/04/24 21:44 54M with history of alcohol use presents to ED with alcohol use and SI. Patient was recently discharged from here. Chief Complaint: Alcohol Vital signs: Vital Signs Temperature 98.1 F 09/04/24 21:44 Pulse Rate 100 09/04/24 21:44 Respiratory Rate 18 09/04/24 21:44 Blood Pressure 146/96 H 09/04/24 21:44 Pulse Oximetry (%) 97 09/04/24 21:44 Oxygen Delivery Method Room Air 09/04/24 21:44
[2024-09-05 00:04] LABS: Basophils # (Auto) 0.1 Thou/mm3 (0.0-0.2); Basophils % (Auto) 2 % (0-2.5); Eosinophils % (Auto) 1 % (0-10); Hematocrit 43.2 % (41.0-53.0); Hemoglobin 14.4 g/dL (13.5-16.0); Immature Granulocytes % (Auto) 1 % (0-0); Immature Granulocytes Auto 0.05 Thou/mm3 (0.00-0.00); Lymphocytes # (Auto) 2.2 Thou/mm3 (1.0-4.8); Lymphocytes % (Auto) 34 % (10-50); Mean Corpuscular HGB Conc 33.3 g/dl (31.0-37.0); Mean Corpuscular Hemoglobin 32.1 pg (25.0-35.0); Mean Corpuscular Volume 96 fL (80-100); Monocytes # (Auto) 0.8 Thou/mm3 (0.0-0.8); Monocytes % (Auto) 13 % (0-12); Neutrophils # (Auto) 3.2 Thou/mm3 (1.8-7.7); Neutrophils % (Auto) 50 % (37-80); Nucleated Red Blood Cell % 0 /100 WBC (0); Platelet Count 343 Thou/mm3 (140-440); Red Blood Count 4.49 Miln/mm3 (4.50-5.90); White Blood Count 6.4 Thou/mm3 (3.8-10.6)
--- NOTE | 2024-09-05 00:22 | PC.NURSE ---
SECURITY REPORTED THAT PT WAS SEEN CROSSING THE STREET AND LEAVING.
[2024-09-05 00:48] LABS: Alanine Aminotransferase 292 U/L (10-49); Albumin, Serum 4.4 gm/dL (3.5-5.0); Albumin/Globulin Ratio 1.5 (1.2-2.2); Alcohol, Blood Medical 309.1 mg/dL (0-10.0); Alkaline Phosphatase 103 U/L (46-116); Anion Gap 8 (7-16); Aspartate Amino Transferase 264 U/L (0-34); BUN/Creatinine Ratio 10 Ratio (12-20); Bilirubin,Total 0.4 mg/dL (0.3-1.2); Blood Urea Nitrogen 9 mg/dL (9-23); Calcium 9.5 mg/dL (8.3-10.6); Calcium (Corrected) 9.5 mg/dL (8.5-10.1); Carbon Dioxide 31.6 mMol/L (20.0-31.0); Chloride 104 mMol/L (98-107); Creatinine (Component) 0.9 mg/dL (0.6-1.3); Estimated Creatinine Clearance 85.7 mL/min (>60); Globulin 2.9 gm/dL (2.3-3.5); Glucose 108 mg/dL (74-106); Osmolality,Calculated 286 (275-295); Sodium 144 mMol/L (136-145); Total Protein 7.3 gm/dL (5.7-8.2); eGFR > 60 See Note
== END 2024-09-05 02:54 | disposition left against medical advice (07) ==
LOC: SERX 23:16
PROVIDERS: Physician Assistant; Emergency Provider Emergency Medicine
DX: F10.90 Alcohol use, unspecified, uncomplicated (principal); R45.851 Suicidal ideations; Y90.8 Blood alcohol level of 240 mg/100 ml or more; Z53.29 Procedure and treatment not carried out because of patient's decision for other reasons
CPT/HCPCS: 36415; 80053; 80307; 80320; 85025; 99281; G0480

== ENCOUNTER 2024-12-27 16:03 | Emergency (ER) | payer MEDICAID, SELFPAY ==
[2024-12-27 16:53] VITALS: BMI 28.3
[2024-12-27 16:56] VITALS: BP 92/63; PULSE 129; TEMP 37.4; O2SAT 93
--- NOTE | 2024-12-27 17:44 | EDNOTE_ITS ---
Altered Mental Status RME/HPI General Chief Complaint: Altered Mental Status Stated Complaint: INTOXICATED Time Seen by Provider: 12/27/24 16:16 Arrival date/time: 12/27/24 16:03 RME / HPI RME / HPI narrative: 54 year old male presents to the ED for evaluation after being brought in by EMS due to suspected alcohol intoxication. Per EMS, the patients landlord called them stating the patient was intoxicated. Patient was was found to be intoxicated. The patient is alert and answering questions. On arrival, the patient denies any specific complaints or symptoms, including pain, nausea, or dizziness. Vital signs are stable, and there are no apparent signs of trauma. The patient is currently under observation for monitoring and assessment. No other relevant medical history or significant events are reported at this time. Related Data Home Medications ?Medication ?Instructions ?Recorded ?Confirmed levothyroxine 175 mcg tablet 175 mcg PO QDAY 08/26/24 08/27/24 (Synthroid) Allergies Allergy/AdvReac Type Severity Reaction Status Date / Time No Known Allergies Allergy Verified 08/26/24 15:26 Review of Systems Review of Systems Narrative Review of Systems: GEN: No fever, no chills, no weight loss EYES: No discharge, no visual changes, no pain HEENT: No ear pain, no congestion, no sore throat PULM: No shortness of breath, no cough, no congestion CV: No chest pain, no dyspnea on exertion, no palpitations GI: No nausea, no vomiting, no diarrhea, no pain, no constipation : No frequency, no urgency, no dysuria MUSC/SKEL: No joint pain, no back pain SKIN: No rash PSYCH: +alcohol intoxication. No hallucinations, no depression HEME/LYMPH: No easy bleeding or bruising tendencies NEURO: No weakness, no headache Past Medical History Past Medical History NEUROLOGIC: Negative Neurological Disorders CARDIAC: Negative Cardiac Disorders or Congestive Heart Failure RESPIRATORY: Negative Chronic Obstructive Pulmonary Disease (COPD) GENITOURINARY: Negative Genitourinary Disorders or Renal Disease MUSCULOSKELETAL: Negative Musculoskeletal Disorders ENDOCRINE: Positive Endocrine Disorders and Hypothyroidism; Negative Diabetes Mellitus Type 1 or Diabetes Mellitus Type 2 OTHER HISTORY: Positive Falls Social History SMOKING STATUS: Former smoker ED Exam Narrative Physical exam: GENERAL APPEARANCE:? alert and oriented x 4, well-developed, well-nourished, patient is intoxicated, poor hygiene, unkempt, stool coming down from the patients pant leg, patient is covered in urine, smells of sweat/feces/alcohol HEENT: normocephalic, atraumatic NECK: supple LUNGS: no respiratory distress, normal effort HEART: good peripheral perfusion ABDOMEN: non distended EXTREMITIES:? atraumatic NEUROLOGIC: awake; alert and oriented x4; cranial nerves II-XII grossly intact PSYCHIATRIC:? appropriate mood and affect SKIN: warm, dry, normal color; no rashes Course Course Course Narrative: 1800: Patient signed out to Dr. Platt pending labs and final disposition. Quality Measures none Orders Category Date Time Status Alcohol, Blood Medical Stat Lab 12/27/24 18:25 Completed CBC Stat Lab 12/27/24 18:25 Completed CMP [Comprehensive Metabolic Panel] Stat Lab 12/27/24 18:25 Completed Drug Screen,Urine Stat Lab 12/27/24 18:50 Completed UA, C/S IF [Urinalysis, C/S if Indicated] Stat Lab 12/27/24 18:50 Completed Vital Signs Vital signs: Vital Signs Temperature 99.3 F 12/27/24 16:56 Pulse Rate 129 H 12/27/24 16:56 Blood Pressure 92/63 12/27/24 16:56 Pulse Oximetry (%) 93 L 12/27/24 16:56 Pulse ox is 93% on room air which is adequate. Altered Mental Status MDM Narrative MDM Narrative:: Haylee Donato am scribing for and in the presence of Dr. Quevedo. Patient data External records reviewed:: [facility] previous records (I reviewed admission from 08/26/2024 through 08/30/2024 ) Clinical information provided by:: patient and EMS Social determinants that could affect healthcare access:: alcohol use Patient has the following chronic illnesses:: Hypothyroidism How is presenting disease/condition affected by chronic disease/condition?: uneffected by Evaluation data The following diagnostics were reviewed and interpreted by me:: other (specify) (No diagnostics resulted prior to dc ) Lab and/or radiology exams considered but not ordered:: None Interpretation Summary: N/A Medications / Prescriptions Medications or Prescriptions considered but not ordered:: None Medication administrations:: None Consultations Consultation(s) initiated? (list below): No Diagnosis Differential diagnosis altered mental status: alcoholic intoxication, altered mental status and hypoglycemia Most likely diagnosis given after review of the tests above:: Alcohol intoxication Admission Indicated Admission indicated?: not indicated Explain why admission is indicated or not indicated:: 1800: Patient signed out to Dr. Platt pending labs and final disposition. Admission Request Was there a request for admission?: No Disposition Plan Disposition Plan: other (specify) (Patient signed out ) Discharge Plan Plan Patient Disposition: Elopement Prescriptions/Referrals Prescriptions/Med Rec: No Action levothyroxine [Synthroid] 175 mcg Tablet 175 mcg PO QDAY Referrals: Mel Marroquin PA-C [Primary Care Provider] - In 1 week Patient/Caregiver Discharge Instructions Print Language: Turkish
--- NOTE | 2024-12-27 18:31 | PD.EDADDENDU ---
Emergency Room Addendum Addendum Narrative: 1814: Care assumed from Dr. Quevedo, the previous shift emergency physician. Past medical, surgical, social and family history reviewed. Vitals and home medications reviewed. Results and treatment plan discussed. I will assume the care of the patient at this time and will follow the patient, pending lab results. Please refer to the emergency department record for history and examination from initial visit. 1912: I was informed by nurse that the patient eloped.
[2024-12-27 18:49] LABS: Basophils # (Auto) 0.2 Thou/mm3 (0.0-0.2); Basophils % (Auto) 2 % (0-2.5); Eosinophils # (Auto) 0.1 Thou/mm3 (0.0-0.5); Eosinophils % (Auto) 1 % (0-10); Hematocrit 45.3 % (41.0-53.0); Hemoglobin 15.4 g/dL (13.5-16.0); Immature Granulocytes % (Auto) 0 % (0-0); Immature Granulocytes Auto 0.03 Thou/mm3 (0.00-0.00); Lymphocytes # (Auto) 1.9 Thou/mm3 (1.0-4.8); Lymphocytes % (Auto) 21 % (10-50); Mean Corpuscular Volume 97 fL (80-100); Monocytes # (Auto) 0.8 Thou/mm3 (0.0-0.8); Monocytes % (Auto) 9 % (0-12); Neutrophils # (Auto) 6.2 Thou/mm3 (1.8-7.7); Neutrophils % (Auto) 67 % (37-80); Nucleated Red Blood Cell % 0 /100 WBC (0); Platelet Count 536 Thou/mm3 (140-440); RDW Standard Deviation 47.5 fL (35.1-43.9); Red Blood Count 4.66 Miln/mm3 (4.50-5.90); White Blood Count 9.2 Thou/mm3 (3.8-10.6)
[2024-12-27 19:14] LABS: Collection Type, Urine Clean Catch; Squamous Epithelial Cell,Urine 0 /hpf (0-5)
--- NOTE | 2024-12-27 19:14 | PC.NURSE ---
pt seen walking out back doors of ER. pt ambulatory and fully clothed.
[2024-12-27 19:27] LABS: Alanine Aminotransferase 73 U/L (10-49); Albumin, Serum 3.9 gm/dL (3.5-5.0); Albumin/Globulin Ratio 1.4 (1.2-2.2); Alcohol, Blood Medical 311.4 mg/dL (0-10.0); Alkaline Phosphatase 111 U/L (46-116); Anion Gap 12 (7-16); Aspartate Amino Transferase 73 U/L (0-34); BUN/Creatinine Ratio 10 Ratio (12-20); Bilirubin,Total 0.3 mg/dL (0.3-1.2); Blood Urea Nitrogen 11 mg/dL (9-23); Calcium 8.9 mg/dL (8.3-10.6); Carbon Dioxide 26.1 mMol/L (20.0-31.0); Chloride 106 mMol/L (98-107); Creatinine (Component) 1.1 mg/dL (0.6-1.3); Estimated Creatinine Clearance 64.6 mL/min (>60); Globulin 2.8 gm/dL (2.3-3.5); Glucose 96 mg/dL (74-106); Osmolality,Calculated 286 (275-295); Potassium 4.3 mMol/L (3.4-5.1); Sodium 144 mMol/L (136-145); Total Protein 6.7 gm/dL (5.7-8.2); eGFR > 60 See Note
[2024-12-27 19:30] LABS: Bilirubin,Urine Negative (Negative); Blood,Urine Negative (Negative); Clarity,Urine Clear (Clear/Hazy); Color,Urine Colorless (Lt Yel-Yel); Culture Indicated,Urine Not Indicated; Glucose, Urine Negative (Negative); Hyaline Casts,Urine < 1 /hpf (0-1); Ketones,Urine Negative (Negative); Leukocyte Esterase,Urine Negative (Negative); Nitrite,Urine Negative (Negative); PH,Urine 6.5 (5.0-7.0); Protein,Urine Negative (Neg - Trace); RBC,Urine < 1 /hpf (0-3); Specific Gravity,Urine 1.007 (1.001-1.035); Urobilinogen,Urine Negative mg/dL (0.0-1.0); WBC,Urine < 1 /hpf (0-5)
[2024-12-27 21:13] LABS: Amphetamine/Methamp Scrn,U Negative (Negative); Barbiturate Screen,Urine Positive (Negative); Benzodiazepines Screen,Urine Negative (Negative); Benzoylecgonine Screen, Ur Negative (Negative); Fentanyl Screen,Urine Negative (Negative); Opiate Screen,Urine Negative (Negative); THC Screen,Urine Negative (Negative)
== END 2024-12-27 19:27 | disposition left against medical advice (07) ==
LOC: SERX 16:58
PROVIDERS: Emergency Provider Emergency Medicine; PCP Physician Assistant
DX: F10.929 Alcohol use, unspecified with intoxication, unspecified (principal); Y90.8 Blood alcohol level of 240 mg/100 ml or more; E03.9 Hypothyroidism, unspecified; Z53.29 Procedure and treatment not carried out because of patient's decision for other reasons; Z87.891 Personal history of nicotine dependence
CPT/HCPCS: 36415; 80053; 80307; 80320; 81001; 85025; 99281; G0480

== ENCOUNTER 2025-01-03 14:45 | Emergency (ER) | payer MEDICAID, SELFPAY ==
--- NOTE | 2025-01-03 14:58 | EDNOTE_ITS ---
ED General RME/HPI General Stated complaint: ETOH Time Seen by Provider: 01/03/25 14:56 Arrival date/time: 01/03/25 14:45 RME / HPI RME / HPI narrative: Dr. Felipe?s Main ED Evaluation: 54 y/o male with Hx of alcohol abuse and Hypothyroidism presents to ED BIBA covered in feces and is requesting to be evaluated x 1 day. Patient is requesting to be seen by a doctor, is unkept, and is requesting food. Patient h as been seen in ED over the last 4 months due to alcohol intoxication. No modifying factors reported. No other concerns or complaints expressed at this time. Related Data Home Medications ?Medication ?Instructions ?Recorded ?Confirmed levothyroxine 175 mcg tablet 175 mcg PO QDAY 08/26/24 08/27/24 (Synthroid) Allergies Allergy/AdvReac Type Severity Reaction Status Date / Time No Known Allergies Allergy Verified 08/26/24 15:26 Review of Systems Review of Systems Systems Reviewed: All systems reviewed, normal except as documented Narrative Review of Systems: Gen: No fever, no chills, no weight loss EYES: No discharge, no visual changes, no pain HEENT: No ear pain, no congestion, no sore throat PULM: No shortness of breath, no cough, no congestion CV: No chest pain, no dyspnea on exertion, no palpitations GI: No nausea, no vomiting, no diarrhea, no pain, no constipation : No frequency, no urgency, no dysuria Musc/skel: No joint pain, no back pain Skin: No rash Psyc: No hallucinations, no depression Heme/Lymph: No easy bleeding or bruising tendencies Neuro: No weakness, no headache Past Medical History Past Medical History ENDOCRINE: Positive Endocrine Disorders and Hypothyroidism OTHER HISTORY: Positive Falls Social History SMOKING STATUS: Former smoker ED Exam Narrative Physical exam: GENERAL APPEARANCE: AxOx4, no acute distress. Minimal slurred speech, not making good eye contact, unkept., very dehydrated. HEENT: NC, AT. MMM. EOMI, clear conjunctiva, oropharynx clear. NECK: Supple without lymphadenopathy. No stiffness or restricted ROM. HEART: Normal rate and regular rhythm, normal S1/S1, no m/r/g LUNGS: CTAB, moving air well. No crackles or wheezes are heard. ABDOMEN: Soft, nontender, nondistended with good bowel sounds heard. BACK: No midline C/T/L spine pain or deformity, No CVAT, no obvious deformity. EXTREMITIES: Without cyanosis, clubbing or edema. MUSCULOSKELETAL: FROM of all major joints, no chest tenderness NEUROLOGICAL: Grossly nonfocal. Alert and oriented, moving all 4 extremities. CN not formally tested but appear grossly intact. Observed to ambulate with normal gait. Skin: Warm and dry without any rash. Course Quality Measures none Vital Signs Vital signs: Vital Signs Temperature 97.9 F 01/03/25 15:05 Pulse Rate 109 H 01/03/25 15:05 Respiratory Rate 19 01/03/25 15:05 Blood Pressure 131/91 H 01/03/25 15:05 Pulse Oximetry (%) 97 01/03/25 15:05 Oxygen Delivery Method Room Air 01/03/25 15:05 Critical Care Time Critical Care Time Critical Care Time: No Discharge Plan Plan Patient Disposition: [facility] Prescriptions/Referrals Prescriptions/Med Rec: No Action levothyroxine [Synthroid] 175 mcg Tablet 175 mcg PO QDAY Referrals: No Primary/Family,Physician [Primary Care Provider] - In 1 week Problem List Clinical Impression: Alcohol intoxication Patient/Caregiver Discharge Instructions Print Language: Yoruba MDM Patient Acuity Narrative: Mr. Medley is otherwise clinically well-appearing, however he is unkept, malodorous, and brought in in what appears to be his usual state of alcohol intoxication. Today it appears that he is mildly intoxicated, possibly sobering and therefore comes emergency department primarily asking for help to clean him up (covered in feces) and for a sandwich. I have advised him that our refrigerator is empty and we are waiting for nutrition to come by. He had eloped. He is otherwise clinically well-appearing, no signs of trauma, radiography is not indicated. His current behavior and condition is fitting his chronic alcohol dependence/intoxication. There are no vital signs abnormalities or signs of toxicity requiring laboratory testing to assess for condition such as alcoholic ketoacidosis. He is appropriate for sobriety and safety measures. Scribe Attestation: I, Ariana Rodas, am scribing for and in the presence of Dr. Felipe. Provider Notation: Although this document has been carefully reviewed, there may still be some phonetic and other typographical errors. These errors are purely grammatical due to imperfections in the software program and should not be construed in any way to compromise the substance of the patient's medical care during this visit. 1600: [facility]. Clinical Information Provided by: patient and EMS Medical Records reviewed [facility] (Reviewed prior ED visit notes from 12/27/2024. Patient was seen and discharged for alcohol use and intoxication.) and EMS Meds/Rx considered, not ordered None Labs/Rad/Tests considered, not ordered None Chronic Illness/Social Conditions which may negatively complicate care or outcome(s)-explain: ETOH/drugs/substance abuse Explain: Alcohol abuse and Hypothyroidism EKG EKG not done Labs Labs: none Imaging Imaging interpretation: none or see narrative above Medication Administration(s) none
[2025-01-03 15:05] VITALS: BP 131/91; PULSE 109; RESP 19; TEMP 36.6; O2SAT 97
--- NOTE | 2025-01-03 15:40 | PC.NURSE ---
PATIENT CAME IN WITH NO COMPLAINTS, HX ALCOHOL ABUSE. REQUEST FOOD APON ARRIVAL. PT WAS WAITING ON EMS GURNEY. HE GOT UP AND WALKED OUT OF ED WHICH IS A NORMAL OCCURRENCE WITH PT.
== END 2025-01-03 16:01 | disposition left against medical advice (07) ==
LOC: SERX 15:42
PROVIDERS: Emergency Provider Emergency Medicine
DX: F10.129 Alcohol abuse with intoxication, unspecified (principal); Z53.29 Procedure and treatment not carried out because of patient's decision for other reasons
CPT/HCPCS: 99281

== ENCOUNTER → 2025-02-07 | Outpatient (BNVA) | payer MEDICAID, SELFPAY | END | disposition home or self-care (01) | PROVIDERS: PCP Physician Assistant; Referring Provider Physician Assistant; Visit Provider Urology | DX: N40.1 Benign prostatic hyperplasia with lower urinary tract symptoms (principal); N13.8 Other obstructive and reflux uropathy; R97.20 Elevated prostate specific antigen [PSA]; E66.9 Obesity, unspecified; Z68.28 Body mass index [BMI] 28.0-28.9, adult; Z87.891 Personal history of nicotine dependence; E03.9 Hypothyroidism, unspecified | CPT/HCPCS: 81003; 99212; G0463 ==